=== PATIENT | female | born 1945 | race Hispanic/Latino ===

== ENCOUNTER 2016-09-12 11:35 | Outpatient (CLI) | payer MEDICARE ==
--- NOTE | 2016-09-12 15:13 | Fluoroscopy Report ---
FLUOROSCOPY BARIUM SWALLOW/ESOPHAGRAM INDICATION: Chest pain after EGD with dilatation. COMPARISON: None similar. FINDINGS: Limited barium swallow performed utilizing Gastrografin followed by thin barium. Normal swallowing. No aspiration. No evidence of leak. Normal esophageal course and caliber. No focal mucosal abnormality to the extent assessed. Few surgical clips along mid to distal esophagus noted. Possible cholecystectomy clips as also few surgical clips near the greater curvature superiorly in this patient with history of Hugo fundoplication. Gastric fundus and GE junction though appear positioned slightly high/herniated. No gastroesophageal reflux though demonstrated. CONCLUSION: No focal esophageal abnormality identified with postsurgical changes along its mid to distal portion as also in the included upper abdomen in this patient with history of prior fundoplication surgery, integrity of which may be correlated for clinically, as described above. Thank you for the opportunity to participate in this patient's care.
== END 2016-09-12 11:36 | disposition home or self-care (01) ==
LOC: FLUORO 11:35
PROVIDERS: ATTEND Internal Medicine Gastroenterology
DX: R07.9 Chest pain, unspecified (principal); Z90.49 Acquired absence of other specified parts of digestive tract
CPT/HCPCS: 74220; Q9963

== ENCOUNTER 2017-02-27 13:58 | Outpatient (CLI) | payer MEDICARE ==
[2017-02-27 14:21] LABS: Basophils % (Auto) 0.9 % (0.0-1.8); Eosinophils % (Auto) 5.5 % (0.0-4.3); Hemoglobin 11.2 gm/dl (10.1-14.3); Mean Corpuscular HGB Conc 33 % (30-34); Mean Corpuscular Hemoglobin 30 pg (28-32); Mean Corpuscular Volume 91 fl (79-97); Platelet Count 194 K/mm3 (140-440); Red Blood Count 3.76 M/mm3 (3.65-5.03); Red Cell Distribution Width 15.5 % (13.2-15.2); White Blood Count 5.9 K/mm3 (4.5-11.0)
[2017-02-27 14:38] LABS: Bacteria,Urine 1+ /HPF (Negative); Bilirubin,Urine NEG (Negative); Blood,Urine NEG (Negative); Ketones,Urine NEG (Negative); Leukocyte Esterase,Urine SM (Negative); Mucus,Urine FEW /HPF; Nitrite,Urine NEG (Negative); Protein,Urine <15 mg/dL mg/dL (Negative); Urobilinogen,Urine < 2.0 mg/dL (<2.0)
[2017-02-27 14:57] LABS: BUN/Creatinine Ratio 15.23; Calcium 9.4 mg/dL (8.4-10.2); Chloride 94.6 mmol/L (98-107); Potassium 5.7 mmol/L (3.6-5.0); Uric Acid 5.4 mg/dL (3.5-7.6)
[2017-03-01 16:24] LABS: Vitamin D, 25-OH, Total 28 ng/mL (30-100)
== END 2017-02-27 13:59 | disposition home or self-care (01) ==
LOC: LAB 13:58
PROVIDERS: ATTEND Internal Medicine Nephrology
DX: I12.9 Hypertensive chronic kidney disease with stage 1 through stage 4 chronic kidney disease, or unspecified chronic kidney disease (principal); N18.4 Chronic kidney disease, stage 4 (severe); D63.1 Anemia in chronic kidney disease; E79.0 Hyperuricemia without signs of inflammatory arthritis and tophaceous disease; K21.9 Gastro-esophageal reflux disease without esophagitis; E78.00 Pure hypercholesterolemia, unspecified; F32.9 Major depressive disorder, single episode, unspecified; Z79.899 Other long term (current) drug therapy
CPT/HCPCS: 36415; 80048; 81001; 82306; 82570; 83970; 84105; 84156; 84550; 85025

== ENCOUNTER 2017-08-08 13:29 | Outpatient (CLI) | payer MEDICARE ==
[2017-08-08 14:39] LABS: Bacteria,Urine 4+ /HPF (Negative); Bilirubin,Urine NEG (Negative); Blood,Urine SM (Negative); Ketones,Urine NEG (Negative); Leukocyte Esterase,Urine LG (Negative); Nitrite,Urine NEG (Negative); Protein,Urine <15 mg/dL mg/dL (Negative); Urobilinogen,Urine < 2.0 mg/dL (<2.0)
--- NOTE | 2017-08-08 14:45 | XRay Report ---
CHEST 2 VIEWS INDICATION: Chronic kidney disease, stage IV. COMPARISON: 07/08/2017 FINDINGS: PA and lateral chest radiographs again demonstrate normal cardiomediastinal silhouette, biapical scarring/pleural thickening as also left hilar and right and left upper quadrant surgical clips. Clear remainder lungs. Stable bones. CONCLUSION: No acute chest process, stable, as described. Thank you for the opportunity to participate in this patient's care.
[2017-08-08 14:49] LABS: Basophils % (Auto) 0.5 % (0.0-1.8); Eosinophils % (Auto) 2.1 % (0.0-4.3); Hematocrit 34.9 % (30.3-42.9); Hemoglobin 11.6 gm/dl (10.1-14.3); Mean Corpuscular HGB Conc 33 % (30-34); Mean Corpuscular Hemoglobin 29 pg (28-32); Mean Corpuscular Volume 87 fl (79-97); Platelet Count 208 K/mm3 (140-440); Red Blood Count 3.99 M/mm3 (3.65-5.03); Red Cell Distribution Width 14.8 % (13.2-15.2); White Blood Count 6.4 K/mm3 (4.5-11.0)
[2017-08-08 14:53] LABS: Albumin 4.2 g/dL (3.9-5); Albumin/Globulin Ratio 1.2 %; Bilirubin,Total 0.2 mg/dL (0.1-1.2); Calcium 9.7 mg/dL (8.4-10.2); Chloride 98.1 mmol/L (98-107); Magnesium 1.9 mg/dL (1.7-2.3); Phosphorous 3.7 mg/dL (2.5-4.5); Potassium 5.4 mmol/L (3.6-5.0); Total Protein 7.6 g/dL (6.3-8.2); Uric Acid 3.5 mg/dL (3.5-7.6)
[2017-08-08 14:55] LABS: WBC,Urine > 182.0 /HPF (0.0-6.0)
== END 2017-08-08 13:30 | disposition home or self-care (01) ==
LOC: XRAY 13:29
PROVIDERS: ATTEND Internal Medicine Nephrology
DX: I12.9 Hypertensive chronic kidney disease with stage 1 through stage 4 chronic kidney disease, or unspecified chronic kidney disease (principal); N18.4 Chronic kidney disease, stage 4 (severe); D63.1 Anemia in chronic kidney disease; N25.81 Secondary hyperparathyroidism of renal origin; E79.0 Hyperuricemia without signs of inflammatory arthritis and tophaceous disease; K21.9 Gastro-esophageal reflux disease without esophagitis
CPT/HCPCS: 36415; 71020; 80053; 81001; 82570; 83735; 83970; 84100; 84156; 84550; 85025

== ENCOUNTER 2021-07-12 09:46 | Inpatient (IN) | payer MEDICARE ==
[2021-07-12 10:55] LABS: Basophils % (Auto) 0.2 % (0.0-1.8); Eosinophils # (Auto) 0.1 K/mm3 (0.0-0.4); Eosinophils % (Auto) 0.9 % (0.0-4.3); Hematocrit 34.4 % (30.3-42.9); Hemoglobin 11.1 gm/dl (10.1-14.3); Lymphocytes # (Auto) 0.4 K/mm3 (1.2-5.4); Mean Corpuscular HGB Conc 32 % (30-34); Mean Corpuscular Volume 84 fl (79-97); Monocytes # (Auto) 0.2 K/mm3 (0.0-0.8); Monocytes % (Auto) 3.9 % (0.0-7.3); Platelet Count 238 K/mm3 (140-440); Red Blood Count 4.11 M/mm3 (3.65-5.03); Red Cell Distribution Width 15.4 % (13.2-15.2)
--- NOTE | 2021-07-12 11:03 | Emergency Department Report ---
HPI - General Chief Complaint: Hypoglycemia Time Seen by Provider: 07/12/21 10:04 - HPI HPI: Roblero 7 The patient is a 75-year-old female present with a chief complaint of altered mental status/hypoglycemia. The patient remembers her trying to wake her up and her sitting on the side of the bed being unable to talk. The patient states she was speaking as if she was drowsy or as if her tongue was "falling down the back of [her] throat." EMS was called and the patient was found to be hypoglycemic with a D stick of 46. Patient was given 1 amp of D50 and her blood sugar increased to 179. In the ED the patient had a glucose of 81. The carolyn ent was admitted to this hospital in May with similar episodes of hypoglycemia with a working diagnosis of adrenal insufficiency. Patient was discharged with a prescription for hydrocortisone twice daily but the patient states she ran out of this medication approximately 2 to 3 weeks ago. 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 Patient currently denies complaints ED Past Medical Hx - Past Medical History Previous Medical History?: Yes Hx Hypertension: Yes (FOR 3 YRS, DR. HOPPER- PCP) Hx GERD: Yes Hx Arthritis: Yes (IN THUMBS) - Surgical History Past Surgical History?: Yes Hx Cholecystectomy: Yes - Family History Family history: no significant - Social History Smoking Status: Never Smoker Substance Use Type: None - Medications Home Medications: Home Medications Medication Instructions Recorded Confirmed Last Taken Type Dicyclomine [Bentyl] 10 mg PO TID PRN 09/07/13 07/13/21 09/10/13 21:00 History Potassium Chloride [Klor-Con 10] 10 meq PO QDAY 09/07/13 07/13/21 07/11/21 09:00 History Promethazine [Phenergan] 25 mg PO Q6H PRN 09/07/13 07/13/21 09/09/13 History Ropinirole HCl 1 mg PO QHS PRN 09/07/13 07/13/21 09/10/13 21:00 History diazePAM TAB [Valium] 5 mg PO TID PRN 09/07/13 07/13/21 09/04/13 History estradioL [Estrace] 1 mg PO QDAY 09/07/13 07/13/21 07/11/21 09:00 History traMADoL [Ultram 50 MG tab] 50 mg PO Q6HR PRN 09/07/13 07/13/21 09/10/13 22:00 History Amlodipine Besylate [Norvasc] 5 mg PO QDAY 05/12/21 07/13/21 07/11/21 09:00 History Fenofibrate 160 mg PO QDAY 05/12/21 07/13/21 07/11/21 09:00 History LORazepam [Ativan] 1 mg PO TID PRN 05/12/21 07/13/21 Unknown History Montelukast [Singulair] 10 mg PO QPM 05/12/21 07/13/21 07/11/21 22:00 History QUEtiapine [SEROquel] 300 mg PO QHS PRN 05/12/21 07/13/21 Unknown History Sertraline [Zoloft] 100 mg PO QDAY 05/12/21 07/13/21 07/11/21 09:00 History clonazePAM [KlonoPIN] 0.5 mg PO BID PRN 05/12/21 07/13/21 Unknown History Hydrocortisone [Cortef TAB] 20 mg PO Q12HR 30 Days #60 tablet 05/15/21 07/13/21 07/11/21 21:00 Rx Pantoprazole [Protonix TAB] 40 mg PO BIDAC 30 Days #60 tablet 05/15/21 07/13/21 07/11/21 22:00 Rx QUEtiapine [SEROquel] 100 mg PO QHS tablet 05/15/21 07/13/21 07/11/21 22:00 Rx Sucralfate [Carafate] 1 gm PO ACHS 30 Days #1 bottle 05/15/21 07/13/21 07/11/21 23:00 Rx ED Review of Systems ROS: Stated complaint: LOW BLOOD SUGAR Other details as noted in HPI Constitutional: no symptoms reported Eyes: denies: eye pain ENT: denies: throat pain Respiratory: no symptoms reported Cardiovascular: denies: chest pain Endocrine: see HPI Gastrointestinal: denies: abdominal pain Genitourinary: denies: dysuria Musculoskeletal: denies: back pain Neurological: other (Difficulty speaking) Physical Exam - Physical Exam Vital Signs: Vital Signs 07/12/21 09:49 Temperature 97.9 F Pulse Rate 97 H Respiratory 16 Rate Blood Pressure 153/79 [Left] O2 Sat by Pulse 96 Oximetry Physical Exam: GENERAL: The patient is well-developed well-nourished female lying on stretcher not appearing to be in acute distress. [] HEENT: Normocephalic. Atraumatic. Extraocular motions are intact. Patient has moist mucous membranes. NECK: Supple. Trachea midline CHEST/LUNGS: Clear to auscultation. There is no respiratory distress noted. HEART/CARDIOVASCULAR: Irregularly irregular. There is no tachycardia. There is no gallop rub or murmur. ABDOMEN: Abdomen is soft, nontender. Patient has normal bowel sounds. There is no abdominal distention. SKIN: There is no rash. There is no edema. There is no diaphoresis. NEURO: The patient is awake, alert, and oriented. The patient is cooperative. The patient has no focal neurologic deficits. The patient has normal speech. Cranial nerves II through XII grossly intact MUSCULOSKELETAL: There is no evidence of acute injury. ED Course Vital Signs 07/12/21 09:49 Temperature 97.9 F Pulse Rate 97 H Respiratory 16 Rate Blood Pressure 153/79 [Left] O2 Sat by Pulse 96 Oximetry ED Medical Decision Making - Lab Data Result diagrams: 07/13/21 03:55 07/13/21 03:55 Laboratory Tests 07/12/21 07/12/21 07/12/21 10:00 10:42 10:42 WBC 5.9 RBC 4.11 Hgb 11.1 Hct 34.4 MCV 84 MCH 27 L MCHC 32 RDW 15.4 H Plt Count 238 Lymph % (Auto) 6.0 L [place] % (Auto) 3.9 Eos % (Auto) 0.9 Baso % (Auto) 0.2 Lymph # (Auto) 0.4 L [place] # (Auto) 0.2 Eos # (Auto) 0.1 Baso # (Auto) 0.0 Seg Neutrophils % 89.0 H Seg Neutrophils # 5.3 Sodium 141 Potassium 3.9 Chloride 102.0 Carbon Dioxide 23 Anion Gap 20 BUN 33 H Creatinine 1.5 H Estimated GFR 34 BUN/Creatinine Ratio 22 Glucose 86 POC Glucose 81 Calcium 8.9 Total Bilirubin 0.30 AST 28 ALT 11 Alkaline Phosphatase 79 Total Protein 7.6 Albumin 4.4 Albumin/Globulin Ratio 1.4 TSH Free T4 07/12/21 07/12/21 10:42 12:36 WBC RBC Hgb Hct MCV MCH MCHC RDW Plt Count Lymph % (Auto) [place] % (Auto) Eos % (Auto) Baso % (Auto) Lymph # (Auto) [place] # (Auto) Eos # (Auto) Baso # (Auto) Seg Neutrophils % Seg Neutrophils # Sodium Potassium Chloride Carbon Dioxide Anion Gap BUN Creatinine Estimated GFR BUN/Creatinine Ratio Glucose POC Glucose 58 L Calcium Total Bilirubin AST ALT Alkaline Phosphatase Total Protein Albumin Albumin/Globulin Ratio TSH 3.160 Free T4 0.59 L - Differential Diagnosis Hypoglycemia, adrenal insufficiency Critical care attestation.: If time is entered above; I have spent that time in minutes in the direct care of this critically ill patient, excluding procedure time. ED Disposition Clinical Impression: Hypoglycemia Disposition: ADMITTED INPATIENT Is pt being admited?: Yes Does the pt Need Aspirin: No Condition: Stable Time of Disposition: 12:46 (Hospitalist called (Dr. Carlton))
[2021-07-12 11:16] LABS: Albumin 4.4 g/dL (3.9-5); Calcium 8.9 mg/dL (8.4-10.2)
[2021-07-12 11:27] LABS: Free T4 (Free Thyroxine) 0.59 ng/dL (0.76-1.46)
[2021-07-12] MEDS ORDERED: DEXTROSE 10% IN WATER 1,000 ML IV SCH (14:00)
[2021-07-12] MEDS ORDERED: HYDROCORTISONE 10 MG TAB PO ONE (14:00)
--- NOTE | 2021-07-12 14:08 | History and Physical Report ---
History of Present Illness Chief complaint: confused History of present illness: 75 YO Female with HTN, GERD, Adrenal Insufficiency, DM presents to ED for evaluation. 75 yo female with pmhx of HTN, GERD, prior cholecystectomy presenting with complaint of weakness and fatigue. History obtained from both patient and . Onset was Saturday, patient began feeling tired and was noted to be hypotensive by . Patient states that she also had intermittent spells of dizziness and nausea which states is occasionally relieved by meals. She also has associated abd pain. She is not a diabetic and denies being on any antihyperglyemics. Prior to admission, patient became encephalopathic per . Patient has no recollection of event. Was foudn to be hypoglycemic in 20's by EMS, given D50 amp. In ED, patient was started on D5 drip and was being given D50 pushes intermittently for recurrent hypoglycemia. Temperature was unable to be obtained but subsequent rectal temp taken and was 94.4 F. On my encounter, patient was resting comfortably. Her only complaint was feeling weak and cold. She denied any nicholson, chest pain, n/v/c, peripheral nerve pain. She states that she does have diarrhea but this is chronic. She denied any recent changes to her medications, recent illnesses, or recent steroid usage. PMhx: HTN, GERD PSHx: cholecystectomy FH: Reviewed non contributory SH: smoking: Denies ETOH: denies rec drugs; denies Chief Complaint: Hypoglycemia Time Seen by Provider: 07/12/21 10:04 - HPI HPI: Roblero 7 The patient is a 75-year-old female present with a chief complaint of altered mental status/hypoglycemia. The patient remembers her trying to wake her up and her sitting on the side of the bed being unable to talk. The patient states she was speaking as if she was drowsy or as if her tongue was "falling down the back of [her] throat." EMS was called and the patient was found to be hypoglycemic with a D stick of 46. Patient was given 1 amp of D50 and her blood sugar increased to 179. In the ED the patient had a glucose of 81. The patient was admitted to this hospital in May with similar episodes of hypoglycemia with a working diagnosis of adrenal insufficiency. Patient was discharged with a prescription for hydrocortisone twice daily but the patient states she ran out of this medication approximately 2 to 3 weeks ago. 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 Patient currently denies complaints ED Past Medical Hx - Past Medical History Previous Medical History?: Yes Hx Hypertension: Yes (FOR [address] YRS, DR. HOPPER- PCP) Hx GERD: Yes Hx Arthritis: Yes (IN THUMBS) - Surgical History Past Surgical History?: Yes Hx Cholecystectomy: Yes - Family History Family history: no significant - Social History Smoking Status: Never Smoker Substance Use Type: None Past History Past Medical History: diabetes, hypertension Past Surgical History: Other (hysterectomy, hernia repair, Other (Gallbladder, Sacral nerve stimulation and Sphinter repair), Fistulectomy) Social history: no significant social history Family history: no significant family history Medications and Allergies Medications and Allergies Allergies Allergy/AdvReac Type Severity Reaction Status Date / Time codeine AdvReac VOMITING,IT Verified 05/09/21 05:47 ALDO erythromycin base AdvReac VOMITING,IT Verified 05/09/21 05:47 [Erythromycin Base] ALDO metoclopramide HCl AdvReac VOMITING,IT Verified 05/09/21 05:47 [From Reglan] ALDO pentazocine lactate AdvReac VOMITING,IT Verified 05/09/21 05:47 [From Talwin] ALDO propoxyphene HCl AdvReac VOMITING,IT Verified 05/09/21 05:47 [From Darvon] ALDO Sulfa (Sulfonamide AdvReac VOMITING,IT Verified 05/09/21 05:47 Antibiotics) ALDO paper tape AdvReac Rash Uncoded 09/07/13 10:03 Home Medications Medication Instructions Recorded Confirmed Last Taken Type Dicyclomine [Bentyl] 10 mg PO TID PRN 09/07/13 05/12/21 09/10/13 21:00 History Potassium Chloride [Klor-Con 10] 10 meq PO QDAY 09/07/13 05/12/21 09/10/13 12:00 History Promethazine [Phenergan] 25 mg PO Q6H PRN 09/07/13 05/12/21 09/09/13 History Ropinirole HCl 1 mg PO QHS PRN 09/07/13 05/12/21 09/10/13 21:00 History diazePAM TAB [Valium] 5 mg PO TID PRN 09/07/13 05/12/21 09/04/13 History estradioL [Estrace] 1 mg PO QDAY 09/07/13 05/12/21 09/10/13 21:00 History traMADoL [Ultram 50 MG tab] 50 mg PO Q6HR PRN 09/07/13 05/12/21 09/10/13 22:00 History Amlodipine Besylate [Norvasc] 5 mg PO QDAY 05/12/21 05/12/21 Unknown History Fenofibrate 160 mg PO QDAY 05/12/21 05/12/21 Unknown History LORazepam [Ativan] 1 mg PO TID PRN 05/12/21 05/12/21 Unknown History Montelukast [Singulair] 10 mg PO QPM 05/12/21 05/12/21 Unknown History QUEtiapine [SEROquel] 300 mg PO QHS PRN 05/12/21 05/12/21 Unknown History Sertraline [Zoloft] 100 mg PO QDAY 05/12/21 05/12/21 Unknown History clonazePAM [KlonoPIN] 0.5 mg PO BID PRN 05/12/21 05/12/21 Unknown History Hydrocortisone [Cortef TAB] 20 mg PO Q12HR 30 Days #60 tablet 05/15/21 Unknown Rx Pantoprazole [Protonix TAB] 40 mg PO BIDAC 30 Days #60 tablet 05/15/21 Unknown Rx QUEtiapine [SEROquel] 100 mg PO QHS tablet 05/15/21 Unknown Rx Sucralfate [Carafate] 1 gm PO ACHS 30 Days #1 bottle 05/15/21 Unknown Rx Active Meds: Active Medications Dextrose (D10w) 1,000 mls @ 150 mls/hr IV DIRECT JOCELYNE Exam - Constitutional Vitals: Temp Pulse Resp BP Pulse Ox 97.9 F 97 H 16 153/79 96 07/12/21 09:49 07/12/21 09:49 07/12/21 09:49 07/12/21 09:49 07/12/21 09:49 Results - Labs CBC & Chem 7: 07/12/21 10:42 07/12/21 10:42 Labs: Abnormal lab results 07/12/21 07/12/21 07/12/21 Range/Units 10:42 10:42 10:42 MCH 27 L (28-32) pg RDW 15.4 H (13.2-15.2) % Lymph % (Auto) 6.0 L (13.4-35.0) % Lymph # (Auto) 0.4 L (1.2-5.4) K/mm3 Seg Neutrophils % 89.0 H (40.0-70.0) % BUN 33 H (7-17) mg/dL Creatinine 1.5 H (0.6-1.2) mg/dL POC Glucose (70-105) mg/dL Free T4 0.59 L (0.76-1.46) ng/dL 07/12/21 Range/Units 12:36 MCH (28-32) pg RDW (13.2-15.2) % Lymph % (Auto) (13.4-35.0) % Lymph # (Auto) (1.2-5.4) K/mm3 Seg Neutrophils % (40.0-70.0) % BUN (7-17) mg/dL Creatinine (0.6-1.2) mg/dL POC Glucose 58 L (70-105) mg/dL Free T4 (0.76-1.46) ng/dL
[2021-07-12] MEDS ORDERED: ALBUTEROL 2.5 MG/3 ML NEBU IH PRN (14:14)
[2021-07-12] MEDS ORDERED: oxyCODONE /ACETAMINOPHEN 5-325MG TAB PO PRN (14:14)
[2021-07-12] MEDS ORDERED: ACETAMINOPHEN 325 MG TAB PO PRN (14:14)
[2021-07-12] MEDS ORDERED: HYDROmorphone 1 MG/1 ML INJ IV PRN (14:14)
[2021-07-12] MEDS ORDERED: DICYCLOMINE 10 MG CAP PO PRN (14:17)
[2021-07-12] MEDS ORDERED: PROMETHAZINE 25 MG TAB PO PRN (14:17)
[2021-07-12] MEDS ORDERED: rOPINIRole 1 MG TAB PO PRN (14:17)
--- NOTE | 2021-07-12 14:21 | History and Physical Report ---
History of Present Illness Chief complaint: confused History of present illness: 75 YO Female with HTN, GERD, OA, Adrenal Insufficiency, DM presents to ED for evaluation. Patient is confused and lethargic the time my evaluation unable to provide detailed history. Patient provides only minimal history. Additional h istory brought by EMS staff, ED staff, as well as patient who was made available by telephone for interview. As per this patient had experienced increased fatigue, confusion, episodes of agitation over the past 3 days with persistent and worsening symptoms over the same timeframe. Patient was found to be more confused today. The patient ran out of hydrocortisone 2 weeks ago and has been noncompliant with medication since that time. EMS was notified and upon arrival the patient was found to be in distress and found to have a serum glucose of 20. Patient given an ampule of D50 and subsequent transported to [facility] for further care and evaluation of the aforementioned symptoms. The patient was seen and evaluated in the emergency department. All lab and imaging studies reviewed. The patient was found to have adrenal insufficiency crisis complicated by hypoglycemia, as well as metabolic encephalopathy, and acute kidney injury. Patient admitted to [facility] and initiated on IV hydrocortisone replacement therapy, D5 drip, with concomitant IV fluid resuscitation therapy. No reports of fever, chills, chest pain, palpitation or productive cough, skin rash, recent contact, or known exposure to COVID-19. Prior admission on 05/09/2021 reviewed. All medication listed at time of admission has been reconciled. Patient has diminished cognition at time of evaluation but has a positive gag reflex and is able to protect her airway without difficulty. Past History Past Medical History: arthritis, diabetes, GERD, hypertension, other (See HPI) Past Surgical History: cholecystectomy Social history: , lives with family. denies: smoking, alcohol abuse, prescription drug abuse Family history: diabetes, hypertension Medications and Allergies Allergies Allergy/AdvReac Type Severity Reaction Status Date / Time codeine AdvReac VOMITING,IT Verified 05/09/21 05:47 ALDO erythromycin base AdvReac VOMITING,IT Verified 05/09/21 05:47 [Erythromycin Base] ALDO metoclopramide HCl AdvReac VOMITING,IT Verified 05/09/21 05:47 [From Reglan] ALDO pentazocine lactate AdvReac VOMITING,IT Verified 05/09/21 05:47 [From Talwin] ALDO propoxyphene HCl AdvReac VOMITING,IT Verified 05/09/21 05:47 [From Darvon] ALDO Sulfa (Sulfonamide AdvReac VOMITING,IT Verified 05/09/21 05:47 Antibiotics) ALDO paper tape AdvReac Rash Uncoded 09/07/13 10:03 Home Medications Medication Instructions Recorded Confirmed Last Taken Type Dicyclomine [Bentyl] 10 mg PO TID PRN 09/07/13 05/12/21 09/10/13 21:00 History Potassium Chloride [Klor-Con 10] 10 meq PO QDAY 09/07/13 05/12/21 09/10/13 12:00 History Promethazine [Phenergan] 25 mg PO Q6H PRN 09/07/13 05/12/21 09/09/13 History Ropinirole HCl 1 mg PO QHS PRN 09/07/13 05/12/21 09/10/13 21:00 History diazePAM TAB [Valium] 5 mg PO TID PRN 09/07/13 05/12/21 09/04/13 History estradioL [Estrace] 1 mg PO QDAY 09/07/13 05/12/21 09/10/13 21:00 History traMADoL [Ultram 50 MG tab] 50 mg PO Q6HR PRN 09/07/13 05/12/21 09/10/13 22:00 History Amlodipine Besylate [Norvasc] 5 mg PO QDAY 05/12/21 05/12/21 Unknown History Fenofibrate 160 mg PO QDAY 05/12/21 05/12/21 Unknown History LORazepam [Ativan] 1 mg PO TID PRN 05/12/21 05/12/21 Unknown History Montelukast [Singulair] 10 mg PO QPM 05/12/21 05/12/21 Unknown History QUEtiapine [SEROquel] 300 mg PO QHS PRN 05/12/21 05/12/21 Unknown History Sertraline [Zoloft] 100 mg PO QDAY 05/12/21 05/12/21 Unknown History clonazePAM [KlonoPIN] 0.5 mg PO BID PRN 05/12/21 05/12/21 Unknown History Hydrocortisone [Cortef TAB] 20 mg PO Q12HR 30 Days #60 tablet 05/15/21 Unknown Rx Pantoprazole [Protonix TAB] 40 mg PO BIDAC 30 Days #60 tablet 05/15/21 Unknown Rx QUEtiapine [SEROquel] 100 mg PO QHS tablet 05/15/21 Unknown Rx Sucralfate [Carafate] 1 gm PO ACHS 30 Days #1 bottle 05/15/21 Unknown Rx Active Meds: Active Medications Acetaminophen (Acetaminophen 325 Mg Tab) 650 mg PO Q6H PRN PRN Reason: Pain MILD(1-3)/Fever >100.5/SOUZA Albuterol (Albuterol 2.5 Mg/3 Ml Nebu) 2.5 mg IH Q3HRT PRN PRN Reason: Shortness Of Breath Dicyclomine HCl (Dicyclomine 10 Mg Cap) 10 mg PO TID PRN PRN Reason: acid reflux Estradiol (Estradiol 1 Mg Tab) 1 mg PO QDAY [facility] Hydrocortisone Sodium Succinate (Hydrocortisone Sod Succ 100 Mg/2 Ml Vial) 100 mg IV TID [facility] Stop: 07/13/21 08:01 Hydromorphone HCl (Hydromorphone 1 Mg/1 Ml Inj) 0.5 mg IV Q23H PRN PRN Reason: Pain , Severe (7-10) Dextrose (D10w) 1,000 mls @ 150 mls/hr IV DIRECT JOCELYNE Sodium Chloride (Nacl 0.9% 1000 Ml) 1,000 mls @ 100 mls/hr IV DIRECT [facility] Miscellaneous Medication (Fenofibrate [Fenofibrate]) 160 mg PO QDAY [facility] Miscellaneous Medication (Potassium Chloride [Klor-Con 10]) 10 meq PO QDAY [facility] Montelukast Sodium (Montelukast 10 Mg Tab) 10 mg PO QPM [facility] Oxycodone/Acetaminophen (Oxycodone /Acetaminophen 5-325mg Tab) 1 tab PO Q16H PRN PRN Reason: Pain, Moderate (4-6) Pantoprazole Sodium (Pantoprazole 40 Mg Tab) 40 mg PO BIDAC [facility] Promethazine HCl (Promethazine 25 Mg Tab) 25 mg PO Q6H PRN PRN Reason: Nausea Quetiapine Fumarate (Quetiapine 100 Mg Tab) 100 mg PO QHS [facility] Ropinirole HCl (Ropinirole 1 Mg Tab) 1 mg PO QHS PRN PRN Reason: restless legs Sertraline HCl (Sertraline 100 Mg Tab) 100 mg PO QDAY JOCELYNE Sodium Chloride (Sodium Chloride 0.9% 10 Ml Flush Syringe) 10 ml IV BID JOCELYNE Sodium Chloride (Sodium Chloride 0.9% 10 Ml Flush Syringe) 10 ml IV PRN PRN PRN Reason: LINE FLUSH Sucralfate (Sucralfate 1 Gm/10 Ml Oral Liqd) 1 gm PO ACHS JOCELYNE Tramadol HCl (Tramadol 50 Mg Tab) 50 mg PO Q6HR PRN PRN Reason: PAIN Review of Systems ROS unobtainable: due to mental status Exam - Constitutional Vitals: Temp Pulse Resp BP Pulse Ox 97.9 F 107 H 16 171/70 100 07/12/21 09:49 07/12/21 14:20 07/12/21 14:20 07/12/21 14:20 07/12/21 14:20 General appearance: Present: mild distress - EENT Eyes: Present: PERRL ENT: clear oral mucosa, hearing decreased - Neck Neck: Present: supple, normal ROM - Respiratory Respiratory effort: normal Respiratory: bilateral: CTA - Cardiovascular Heart Sounds: Present: S1 & S2. Absent: rub, click - Extremities Extremities: pulses symmetrical, No edema Peripheral Pulses: within normal limits - Abdominal General gastrointestinal: Present: soft, non-tender, non-distended, normal bowel sounds Female genitourinary: Present: normal - Integumentary Integumentary: Present: clear, dry, clammy, decreased turgor - Musculoskeletal Musculoskeletal: generalized weakness - Psychiatric Psychiatric: no appropriate mood/affect, no intact judgment & insight, no memory intact - Neurologic Neurologic: CNII-XII intact, no focal deficits, moves all extremities, no gait normal Results - Labs CBC & Chem 7: 07/12/21 10:42 07/12/21 10:42 Labs: Abnormal lab results 07/12/21 07/12/21 07/12/21 Range/Units 10:42 10:42 10:42 MCH 27 L (28-32) pg RDW 15.4 H (13.2-15.2) % Lymph % (Auto) 6.0 L (13.4-35.0) % Lymph # (Auto) 0.4 L (1.2-5.4) K/mm3 Seg Neutrophils % 89.0 H (40.0-70.0) % BUN 33 H (7-17) mg/dL Creatinine 1.5 H (0.6-1.2) mg/dL POC Glucose (70-105) mg/dL Free T4 0.59 L (0.76-1.46) ng/dL 07/12/21 Range/Units 12:36 MCH (28-32) pg RDW (13.2-15.2) % Lymph % (Auto) (13.4-35.0) % Lymph # (Auto) (1.2-5.4) K/mm3 Seg Neutrophils % (40.0-70.0) % BUN (7-17) mg/dL Creatinine (0.6-1.2) mg/dL POC Glucose 58 L (70-105) mg/dL Free T4 (0.76-1.46) ng/dL Assessment and Plan - Patient Problems (1) Adrenal crisis syndrome Current Visit: Yes Status: Acute Plan to address problem: IV hydrocortisone bolus, IV hydrocortisone therapy, IV fluid resuscitation therapy, neuro check, supportive care, blood pressure monitoring. (2) Acute kidney injury (ELISA) with acute tubular necrosis (ATN) Current Visit: Yes Status: Acute Plan to address problem: IV fluid resuscitation therapy, BMP, repeat BMP in a.m. (3) Metabolic encephalopathy Current Visit: Yes Status: Acute Plan to address problem: Neuro check, CT scan head from prior admission reviewed, seizure precautions, treat adrenal insufficiency (4) Hypoglycemia Current Visit: Yes Status: Acute Plan to address problem: Dextrose drip, Accu-Chek every 6 hours, continue hypoglycemia protocol (5) DVT prophylaxis Current Visit: Yes Status: Acute Plan to address problem: SCD to bilateral lower extremities while in bed (6) Advance care planning Current Visit: Yes Status: Acute Plan to address problem: Disease education conducted, care plan discussed, diagnoses discussed, prognosis discussed, patient is full code, patient family acknowledges understanding agree with care plan. Patient family counseled outpatient medication compliance. +30 minutes.
[2021-07-12] MEDS: HYDROCORTISONE SOD SUCC 100 MG/2 ML VIAL IV SCH (14:34)
[2021-07-12] MEDS ORDERED: traMADol 50 MG TAB PO PRN (16:24)
[2021-07-12] MEDS ORDERED: SODIUM CHLORIDE 0.9% 1000 ML 1,000 ML IV SCH (16:30)
[2021-07-12] MEDS: PANTOPRAZOLE 40 MG TAB PO SCH (16:31)
[2021-07-12] MEDS: SUCRALFATE 1 GM/10 ML ORAL LIQD PO SCH (18:19)
[2021-07-13] MEDS: HYDROCORTISONE SOD SUCC 100 MG/2 ML VIAL IV SCH ×2 (01:17→10:00)
[2021-07-13] MEDS: QUEtiapine 100 MG TAB PO SCH ×2 (01:17→21:23)
[2021-07-13] MEDS: SUCRALFATE 1 GM/10 ML ORAL LIQD PO SCH ×5 (01:17→21:22)
[2021-07-13 04:27] LABS: Basophils % (Auto) 0.4 % (0.0-1.8); Eosinophils # (Auto) 0.1 K/mm3 (0.0-0.4); Eosinophils % (Auto) 1.3 % (0.0-4.3); Hemoglobin 10.2 gm/dl (10.1-14.3); Lymphocytes # (Auto) 0.5 K/mm3 (1.2-5.4); Lymphocytes % (Auto) 10.9 % (13.4-35.0); Mean Corpuscular HGB Conc 32 % (30-34); Mean Corpuscular Volume 83 fl (79-97); Monocytes # (Auto) 0.1 K/mm3 (0.0-0.8); Monocytes % (Auto) 3.4 % (0.0-7.3); Platelet Count 209 K/mm3 (140-440); Red Blood Count 3.89 M/mm3 (3.65-5.03); Red Cell Distribution Width 15.4 % (13.2-15.2)
[2021-07-13 04:50] LABS: Albumin 4.2 g/dL (3.9-5); Calcium 8.7 mg/dL (8.4-10.2)
[2021-07-13] MEDS: MONTELUKAST 10 MG TAB PO SCH ×2 (06:38→18:15)
[2021-07-13] MEDS: PANTOPRAZOLE 40 MG TAB PO SCH ×2 (06:51→16:26)
[2021-07-13] MEDS: SERTRALINE 100 MG TAB PO SCH (10:00)
[2021-07-13] MEDS: POTASSIUM CHLORIDE ER 10 MEQ TAB PO SCH (10:00)
[2021-07-13] MEDS ORDERED: NON-FORMULARY EACH (Fenofibrate [Fenofibrate] 160 MG Tablet) PO SCH (10:00)
[2021-07-13] MEDS ORDERED: NON-FORMULARY EACH (Potassium Chloride [Klor-Con 10] 10 MEQ Tablet.Er) PO SCH (10:00)
[2021-07-13] MEDS: FENOFIBRATE 145 MG TAB PO SCH (10:00)
[2021-07-13] MEDS: ESTRADIOL 1 MG TAB PO SCH (11:56)
--- NOTE | 2021-07-13 11:56 | Electrocardiograph Report ---
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
--- NOTE | 2021-07-13 15:03 | Progress Note ---
Assessment and Plan Assessment and plan: 75 YO Female with HTN, GERD, OA, Adrenal Insufficiency, DM presents to ED for evaluation. Patient is confused and lethargic the time my evaluation unable to provide detailed history. Patient provides only minimal history. Additional history brought by EMS staff, ED staff, as well as patient who was made available by telephone for interview. As per this patient had experienced increased fatigue, confusion, episodes of agitation over the past 3 days with persistent and worsening symptoms over the same timeframe. Patient was found to be more confused today. The patient ran out of hydrocortisone 2 weeks ago and has been noncompliant with medication since that time. EMS was notified and upon arrival the patient was found to be in distress and found to have a serum glucose of 20. Patient given an ampule of D50 and subsequent transported to [facility] for further care and evaluation of the aforementioned symptoms. The patient was seen and evaluated in the emergency department. All lab and imaging studies reviewed. The patient was found to have adrenal insufficiency crisis complicated by hypoglycemia, as well as metabolic encephalopathy, and acute kidney injury. Patient admitted to [facility] and initiated on IV hydrocortisone replacement therapy, D5 drip, with concomitant IV fluid resuscitation therapy. No reports of fever, chills, chest pain, palpitation or productive cough, skin rash, recent contact, or known exposure to COVID-19. Prior admission on 05/09/2021 reviewed. All medication listed at time of admission has been reconciled. Patient has diminished cognition at time of evaluation but has a positive gag reflex and is able to protect her airway without difficulty. 07/13: Patient seen and examined, she is showing clinical improvement. Will discontinue D10 at this time, continue steroids. Start diet, anticipate discharge in am. (1) Adrenal crisis syndrome Current Visit: Yes Status: Acute Plan to address problem: IV hydrocortisone bolus, IV hydrocortisone therapy, IV fluid resuscitation therapy, neuro check, supportive care, blood pressure monitoring. (2) Acute kidney injury (ELISA) with acute tubular necrosis (ATN) Current Visit: Yes Status: Acute Plan to address problem: IV fluid resuscitation therapy, BMP, repeat BMP in a.m. (3) Metabolic encephalopathy Current Visit: Yes Status: Acute Plan to address problem: Neuro check, CT scan head from prior admission reviewed, seizure precautions, treat adrenal insufficiency (4) Hypoglycemia Current Visit: Yes Status: Acute Plan to address problem: Dextrose drip, Accu-Chek every 6 hours, continue hypoglycemia protocol (5) DVT prophylaxis Current Visit: Yes Status: Acute Plan to address problem: SCD to bilateral lower extremities while in bed (6) Advance care planning Current Visit: Yes Status: Acute Plan to address problem: Disease education conducted, care plan discussed, diagnoses discussed, prognosis discussed, patient is full code, patient family acknowledges understanding agree with care plan. Patient family counseled outpatient medication compliance. +30 minutes. History Interval history: Patient seen and examined, no new complaints. Hospitalist Physical - Physical exam Narrative exam: General appearance: Present: No distress - EENT Eyes: Present: PERRL ENT: clear oral mucosa, hearing decreased - Neck Neck: Present: supple, normal ROM - Respiratory Respiratory effort: normal Respiratory: bilateral: CTA - Cardiovascular Heart Sounds: Present: S1 & S2. Absent: rub, click - Extremities Extremities: pulses symmetrical, No edema Peripheral Pulses: within normal limits - Abdominal General gastrointestinal: Present: soft, non-tender, non-distended, normal bowel sounds Female genitourinary: Present: normal - Integumentary Integumentary: Present: clear, dry, clammy, decreased turgor - Musculoskeletal Musculoskeletal: generalized weakness - Psychiatric Psychiatric: no appropriate mood/affect, no intact judgment & insight, no memory intact - Neurologic Neurologic: CNII-XII intact, no focal deficits, moves all extremities, no gait normal - Constitutional Vitals: Temp Pulse Resp BP Pulse Ox 98.7 F 75 18 161/78 100 07/13/21 08:00 07/13/21 10:00 07/13/21 13:54 07/13/21 05:55 07/13/21 13:54 General appearance: Present: mild distress Results - Labs CBC & Chem 7: 07/13/21 03:55 07/13/21 03:55 Labs: Laboratory Last Values WBC 4.3 K/mm3 (4.5-11.0) L 07/13/21 03:55 RBC 3.89 M/mm3 (3.65-5.03) 07/13/21 03:55 Hgb 10.2 gm/dl (10.1-14.3) 07/13/21 03:55 Hct 32.0 % (30.3-42.9) 07/13/21 03:55 MCV 83 fl (79-97) 07/13/21 03:55 MCH 26 pg (28-32) L 07/13/21 03:55 MCHC 32 % (30-34) 07/13/21 03:55 RDW 15.4 % (13.2-15.2) H 07/13/21 03:55 Plt Count 209 K/mm3 (140-440) 07/13/21 03:55 Lymph % (Auto) 10.9 % (13.4-35.0) L 07/13/21 03:55 [place] % (Auto) 3.4 % (0.0-7.3) 07/13/21 03:55 Eos % (Auto) 1.3 % (0.0-4.3) 07/13/21 03:55 Baso % (Auto) 0.4 % (0.0-1.8) 07/13/21 03:55 Lymph # (Auto) 0.5 K/mm3 (1.2-5.4) L 07/13/21 03:55 [place] # (Auto) 0.1 K/mm3 (0.0-0.8) 07/13/21 03:55 Eos # (Auto) 0.1 K/mm3 (0.0-0.4) 07/13/21 03:55 Baso # (Auto) 0.0 K/mm3 (0.0-0.1) 07/13/21 03:55 Seg Neutrophils % 84.0 % (40.0-70.0) H 07/13/21 03:55 Seg Neutrophils # 3.6 K/mm3 (1.8-7.7) 07/13/21 03:55 Sodium 135 mmol/L (137-145) L 07/13/21 03:55 Potassium 4.2 mmol/L (3.6-5.0) 07/13/21 03:55 Chloride 97.2 mmol/L (98-107) L 07/13/21 03:55 Carbon Dioxide 22 mmol/L (22-30) 07/13/21 03:55 Anion Gap 20 mmol/L 07/13/21 03:55 BUN 27 mg/dL (7-17) H 07/13/21 03:55 Creatinine 1.5 mg/dL (0.6-1.2) H 07/13/21 03:55 Estimated GFR 34 ml/min 07/13/21 03:55 BUN/Creatinine Ratio 18 % 07/13/21 03:55 Glucose 281 mg/dL (65-100) H 07/13/21 03:55 POC Glucose 160 mg/dL (70-105) H 07/13/21 11:36 Calcium 8.7 mg/dL (8.4-10.2) 07/13/21 03:55 Total Bilirubin 0.30 mg/dL (0.1-1.2) 07/13/21 03:55 AST 24 units/L (5-40) 07/13/21 03:55 ALT 12 units/L (7-56) 07/13/21 03:55 Alkaline Phosphatase 76 units/L (35-129) 07/13/21 03:55 Total Protein 7.1 g/dL (6.3-8.2) 07/13/21 03:55 Albumin 4.2 g/dL (3.9-5) 07/13/21 03:55 Albumin/Globulin Ratio 1.4 % 07/13/21 03:55 TSH 3.160 mlU/mL (0.270-4.200) 07/12/21 10:42 Free T4 0.59 ng/dL (0.76-1.46) L 07/12/21 10:42 Coronavirus (PCR) Negative (Negative) 07/13/21 Unknown Active Medications - Current Medications Current Medications: Generic Name Dose Route Start Last Admin Trade Name Freq PRN Reason Stop Dose Admin Acetaminophen 650 mg 07/12/21 14:14 Acetaminophen 325 Mg Tab PO Q6H PRN Pain MILD(1-3)/Fever >100.5/SOUZA Albuterol 2.5 mg 07/12/21 14:14 Albuterol 2.5 Mg/3 Ml Nebu IH Q3HRT PRN Shortness Of Breath Dicyclomine HCl 10 mg 07/12/21 14:17 Dicyclomine 10 Mg Cap PO TID PRN acid reflux Estradiol 1 mg 07/13/21 10:00 07/13/21 11:56 Estradiol 1 Mg Tab PO 1 mg QDAY JOCELYNE Administration Fenofibrate 145 mg 07/13/21 10:00 07/13/21 10:00 Fenofibrate 145 Mg Tab PO 145 mg DAILY JOCELYNE Administration Hydromorphone HCl 0.5 mg 07/12/21 14:14 Hydromorphone 1 Mg/1 Ml Inj IV Q23H PRN Pain , Severe (7-10) Sodium Chloride 1,000 mls @ 100 mls/hr 07/12/21 16:30 07/13/21 06:52 Nacl 0.9% 1000 Ml IV 100 mls/hr DIRECT JOCELYNE Administration Montelukast Sodium 10 mg 07/12/21 18:00 07/13/21 06:38 Montelukast 10 Mg Tab PO Not Given QPM JOCELYNE Oxycodone/Acetaminophen 1 tab 07/12/21 14:14 07/13/21 03:19 Oxycodone /Acetaminophen 5-325mg Tab PO 1 tab Q16H PRN Administration Pain, Moderate (4-6) Pantoprazole Sodium 40 mg 07/12/21 16:30 07/13/21 06:51 Pantoprazole 40 Mg Tab PO 40 mg BIDAC JOCELYNE Administration Potassium Chloride 10 meq 07/13/21 10:00 07/13/21 10:00 Potassium Chloride Er 10 Meq Tab PO 10 meq QDAY JOCELYNE Administration Promethazine HCl 25 mg 07/12/21 14:17 Promethazine 25 Mg Tab PO Q6H PRN Nausea Quetiapine Fumarate 100 mg 07/12/21 22:00 07/13/21 01:17 Quetiapine 100 Mg Tab PO 100 mg QHS JOCELYNE Administration Ropinirole HCl 1 mg 07/12/21 14:17 Ropinirole 1 Mg Tab PO QHS PRN restless legs Sertraline HCl 100 mg 07/13/21 10:00 07/13/21 10:00 Sertraline 100 Mg Tab PO 100 mg QDAY JOCELYNE Administration Sodium Chloride 10 ml 07/12/21 17:00 07/13/21 10:01 Sodium Chloride 0.9% 10 Ml Flush Syringe IV 10 ml BID JOCELYNE Administration Sodium Chloride 10 ml 07/12/21 14:14 Sodium Chloride 0.9% 10 Ml Flush Syringe IV PRN PRN LINE FLUSH Sucralfate 1 gm 07/12/21 17:30 07/13/21 12:04 Sucralfate 1 Gm/10 Ml Oral Liqd PO 1 gm ACHS JOCELYNE Administration Tramadol HCl 50 mg 07/12/21 16:24 Tramadol 50 Mg Tab PO Q6H PRN Pain, Moderate (4-6)
[2021-07-14] MEDS ORDERED: DEXTROSE 50% IN WATER (25GM) 50 ML SYRINGE IV ONE (08:33)
[2021-07-14] MEDS: amLODIPine 5 MG TAB PO SCH (09:08)
[2021-07-14] MEDS: POTASSIUM CHLORIDE ER 10 MEQ TAB PO SCH (09:08)
[2021-07-14] MEDS: PANTOPRAZOLE 40 MG TAB PO SCH ×2 (09:08→18:08)
[2021-07-14] MEDS: SUCRALFATE 1 GM/10 ML ORAL LIQD PO SCH ×4 (09:08→21:13)
[2021-07-14] MEDS: SERTRALINE 100 MG TAB PO SCH (09:08)
[2021-07-14] MEDS: FENOFIBRATE 145 MG TAB PO SCH (09:08)
[2021-07-14] MEDS: ESTRADIOL 1 MG TAB PO SCH (09:16)
[2021-07-14] MEDS ORDERED: HYDROCORTISONE 10 MG TAB PO SCH (10:00)
[2021-07-14] MEDS: hydrALAZINE 20 MG/1 ML INJ IV PRN ×2 (11:18→21:15)
--- NOTE | 2021-07-14 12:59 | Progress Note ---
Assessment and Plan Assessment and plan: 75 YO Female with HTN, GERD, OA, Adrenal Insufficiency, DM presents to ED for evaluation. Patient is confused and lethargic the time my evaluation unable to provide detailed history. Patient provides only minimal history. Additional history brought by EMS staff, ED staff, as well as patient who was made available by telephone for interview. As per this patient had experienced increased fatigue, confusion, episodes of agitation over the past 3 days with persistent and worsening symptoms over the same timeframe. Patient was found to be more confused today. The patient ran out of hydrocortisone 2 weeks ago and has been noncompliant with medication since that time. EMS was notified and upon arrival the patient was found to be in distress and found to have a serum glucose of 20. Patient given an ampule of D50 and subsequent transported to [facility] for further care and evaluation of the aforementioned symptoms. The patient was seen and evaluated in the emergency department. All lab and imaging studies reviewed. The patient was found to have adrenal insufficiency crisis complicated by hypoglycemia, as well as metabolic encephalopathy, and acute kidney injury. Patient admitted to [facility] and initiated on IV hydrocortisone replacement therapy, D5 drip, with concomitant IV fluid resuscitation therapy. No reports of fever, chills, chest pain, palpitation or productive cough, skin rash, recent contact, or known exposure to COVID-19. Prior admission on 05/09/2021 reviewed. All medication listed at time of admission has been reconciled. Patient has diminished cognition at time of evaluation but has a positive gag reflex and is able to protect her airway without difficulty. 07/13: Patient seen and examined, she is showing clinical improvement. Will discontinue D10 at this time, continue steroids. Start diet, anticipate discharge in am. 11:Patient noted to have hypoglycemia mildly today not so sure how her diet was in the last 24 hours we will discussed with nursing staff to keep an accurate documentation of how much she is eating. She is on a regular meal at this time review of records from her adrenal work-up shows an elevated cortisol level. I think this patient will benefit from an order worker evaluation outpatient until at that time we will likely need to put her on some type of glucose supplementation until full work-up is completed outpatient. Hydrocortisone has been stopped will monitor to ensure no blood pressure complications. (1) Adrenal crisis syndrome Current Visit: Yes Status: Acute Plan to address problem: IV hydrocortisone bolus, IV hydrocortisone therapy, IV fluid resuscitation therapy, neuro check, supportive care, blood pressure monitoring. (2) Acute kidney injury (ELISA) with acute tubular necrosis (ATN) Current Visit: Yes Status: Acute Plan to address problem: IV fluid resuscitation therapy, BMP, repeat BMP in a.m. (3) Metabolic encephalopathy Current Visit: Yes Status: Acute Plan to address problem: Neuro check, CT scan head from prior admission reviewed, seizure precautions, treat adrenal insufficiency (4) Hypoglycemia Current Visit: Yes Status: Acute Plan to address problem: Dextrose drip, Accu-Chek every 6 hours, continue hypoglycemia protocol (5) DVT prophylaxis Current Visit: Yes Status: Acute Plan to address problem: SCD to bilateral lower extremities while in bed (6) Advance care planning Current Visit: Yes Status: Acute Plan to address problem: Disease education conducted, care plan discussed, diagnoses discussed, prognosis discussed, patient is full code, patient family acknowledges understanding agree with care plan. Patient family counseled outpatient medication compliance. +30 minutes. History Interval history: Patient seen and examined, no new complaints. Hospitalist Physical - Physical exam Narrative exam: General appearance: Present: No distress - EENT Eyes: Present: PERRL ENT: clear oral mucosa, hearing decreased - Neck Neck: Present: supple, normal ROM - Respiratory Respiratory effort: normal Respiratory: bilateral: CTA - Cardiovascular Heart Sounds: Present: S1 & S2. Absent: rub, click - Extremities Extremities: pulses symmetrical, No edema Peripheral Pulses: within normal limits - Abdominal General gastrointestinal: Present: soft, non-tender, non-distended, normal bowel sounds Female genitourinary: Present: normal - Integumentary Integumentary: Present: clear, dry, clammy, decreased turgor - Musculoskeletal Musculoskeletal: generalized weakness - Psychiatric Psychiatric: no appropriate mood/affect, no intact judgment & insight, no memory intact - Neurologic Neurologic: CNII-XII intact, no focal deficits, moves all extremities, no gait normal - Constitutional Vitals: Temp Pulse Resp BP Pulse Ox 97.3 F L 106 H 16 175/79 98 07/14/21 12:16 07/14/21 12:16 07/14/21 12:16 07/14/21 12:16 07/14/21 12:16 General appearance: Present: mild distress Results - Labs CBC & Chem 7: 07/13/21 03:55 07/13/21 03:55 Labs: Laboratory Last Values WBC 4.3 K/mm3 (4.5-11.0) L 07/13/21 03:55 RBC 3.89 M/mm3 (3.65-5.03) 07/13/21 03:55 Hgb 10.2 gm/dl (10.1-14.3) 07/13/21 03:55 Hct 32.0 % (30.3-42.9) 07/13/21 03:55 MCV 83 fl (79-97) 07/13/21 03:55 MCH 26 pg (28-32) L 07/13/21 03:55 MCHC 32 % (30-34) 07/13/21 03:55 RDW 15.4 % (13.2-15.2) H 07/13/21 03:55 Plt Count 209 K/mm3 (140-440) 07/13/21 03:55 Lymph % (Auto) 10.9 % (13.4-35.0) L 07/13/21 03:55 [place] % (Auto) 3.4 % (0.0-7.3) 07/13/21 03:55 Eos % (Auto) 1.3 % (0.0-4.3) 07/13/21 03:55 Baso % (Auto) 0.4 % (0.0-1.8) 07/13/21 03:55 Lymph # (Auto) 0.5 K/mm3 (1.2-5.4) L 07/13/21 03:55 [place] # (Auto) 0.1 K/mm3 (0.0-0.8) 07/13/21 03:55 Eos # (Auto) 0.1 K/mm3 (0.0-0.4) 07/13/21 03:55 Baso # (Auto) 0.0 K/mm3 (0.0-0.1) 07/13/21 03:55 Seg Neutrophils % 84.0 % (40.0-70.0) H 07/13/21 03:55 Seg Neutrophils # 3.6 K/mm3 (1.8-7.7) 07/13/21 03:55 Sodium 135 mmol/L (137-145) L 07/13/21 03:55 Potassium 4.2 mmol/L (3.6-5.0) 07/13/21 03:55 Chloride 97.2 mmol/L (98-107) L 07/13/21 03:55 Carbon Dioxide 22 mmol/L (22-30) 07/13/21 03:55 Anion Gap 20 mmol/L 07/13/21 03:55 BUN 27 mg/dL (7-17) H 07/13/21 03:55 Creatinine 1.5 mg/dL (0.6-1.2) H 07/13/21 03:55 Estimated GFR 34 ml/min 07/13/21 03:55 BUN/Creatinine Ratio 18 % 07/13/21 03:55 Glucose 281 mg/dL (65-100) H 07/13/21 03:55 POC Glucose 116 mg/dL (70-105) H 07/14/21 12:15 Calcium 8.7 mg/dL (8.4-10.2) 07/13/21 03:55 Total Bilirubin 0.30 mg/dL (0.1-1.2) 07/13/21 03:55 AST 24 units/L (5-40) 07/13/21 03:55 ALT 12 units/L (7-56) 07/13/21 03:55 Alkaline Phosphatase 76 units/L (35-129) 07/13/21 03:55 Total Protein 7.1 g/dL (6.3-8.2) 07/13/21 03:55 Albumin 4.2 g/dL (3.9-5) 07/13/21 03:55 Albumin/Globulin Ratio 1.4 % 07/13/21 03:55 TSH 3.160 mlU/mL (0.270-4.200) 07/12/21 10:42 Free T4 0.59 ng/dL (0.76-1.46) L 07/12/21 10:42 Nasal Screen MRSA (PCR) Negative (Negative) 07/13/21 06:45 Coronavirus (PCR) Negative (Negative) 07/13/21 Unknown Active Medications - Current Medications Current Medications: Generic Name Dose Route Start Last Admin Trade Name Freq PRN Reason Stop Dose Admin Acetaminophen 650 mg 07/12/21 14:14 Acetaminophen 325 Mg Tab PO Q6H PRN Pain MILD(1-3)/Fever >100.5/SOUZA Albuterol 2.5 mg 07/12/21 14:14 Albuterol 2.5 Mg/3 Ml Nebu IH Q3HRT PRN Shortness Of Breath Amlodipine Besylate 5 mg 07/14/21 10:00 07/14/21 09:08 Amlodipine 5 Mg Tab PO 5 mg QDAY JOCELYNE Administration Dicyclomine HCl 10 mg 07/12/21 14:17 Dicyclomine 10 Mg Cap PO TID PRN acid reflux Fenofibrate 145 mg 07/13/21 10:00 07/14/21 09:08 Fenofibrate 145 Mg Tab PO 145 mg DAILY JOCELYNE Administration Hydralazine HCl 10 mg 07/14/21 08:37 07/14/21 11:18 Hydralazine 20 Mg/1 Ml Inj IV 10 mg Q4HR PRN Administration Hypertension Hydromorphone HCl 0.5 mg 07/12/21 14:14 07/14/21 11:17 Hydromorphone 1 Mg/1 Ml Inj IV 0.5 mg Q23H PRN Administration Pain , Severe (7-10) Sodium Chloride 1,000 mls @ 100 mls/hr 07/12/21 16:30 07/13/21 06:52 Nacl 0.9% 1000 Ml IV 100 mls/hr DIRECT JOCELYNE Administration Dextrose 1,000 mls @ 75 mls/hr 07/14/21 12:00 D5w IV DIRECT JOCELYNE Montelukast Sodium 10 mg 07/12/21 18:00 07/13/21 18:15 Montelukast 10 Mg Tab PO 10 mg QPM JOCELYNE Administration Oxycodone/Acetaminophen 1 tab 07/12/21 14:14 07/13/21 03:19 Oxycodone /Acetaminophen 5-325mg Tab PO 1 tab Q16H PRN Administration Pain, Moderate (4-6) Pantoprazole Sodium 40 mg 07/12/21 16:30 07/14/21 09:08 Pantoprazole 40 Mg Tab PO 40 mg BIDAC JOCELYNE Administration Potassium Chloride 10 meq 07/13/21 10:00 07/14/21 09:08 Potassium Chloride Er 10 Meq Tab PO 10 meq QDAY JOCELYNE Administration Promethazine HCl 25 mg 07/12/21 14:17 Promethazine 25 Mg Tab PO Q6H PRN Nausea Quetiapine Fumarate 100 mg 07/12/21 22:00 07/13/21 21:23 Quetiapine 100 Mg Tab PO 100 mg QHS JOCELYNE Administration Ropinirole HCl 1 mg 07/12/21 14:17 Ropinirole 1 Mg Tab PO QHS PRN restless legs Sertraline HCl 100 mg 07/13/21 10:00 07/14/21 09:08 Sertraline 100 Mg Tab PO 100 mg QDAY JOCELYNE Administration Sodium Chloride 10 ml 07/12/21 17:00 07/14/21 09:12 Sodium Chloride 0.9% 10 Ml Flush Syringe IV 10 ml BID JOCELYNE Administration Sodium Chloride 10 ml 07/12/21 14:14 Sodium Chloride 0.9% 10 Ml Flush Syringe IV PRN PRN LINE FLUSH Sucralfate 1 gm 07/12/21 17:30 07/14/21 11:16 Sucralfate 1 Gm/10 Ml Oral Liqd PO 1 gm ACHS JOCELYNE Administration Tramadol HCl 50 mg 07/12/21 16:24 Tramadol 50 Mg Tab PO Q6H PRN Pain, Moderate (4-6)
[2021-07-14] MEDS: DEXTROSE 5% IN WATER 1,000 ML IV SCH (14:21)
[2021-07-14] MEDS: MONTELUKAST 10 MG TAB PO SCH (18:08)
[2021-07-14] MEDS: QUEtiapine 100 MG TAB PO SCH (21:15)
--- NOTE | 2021-07-14 23:24 | Event Note ---
Date: 07/14/21 Called by patient nurse that patient had a run of V. tach 5 beats. The patient nurse said patient had similar episode of runs of V. tach during the day. Patient is asymptomatic. EKG ordered. Lab work including magnesium and phosphorus level ordered.
[2021-07-15 01:22] LABS: Albumin 4.4 g/dL (3.9-5); Calcium 9.5 mg/dL (8.4-10.2)
[2021-07-15] MEDS: DEXTROSE 5% IN WATER 1,000 ML IV SCH (04:09)
[2021-07-15] MEDS ORDERED: MAGNESIUM SULFATE 1 GM in SODIUM CHLORIDE 0.9% 50 ML IV ONE (09:00)
[2021-07-15] MEDS ORDERED: POTASSIUM PHOSPHATE 40 MMOL in SODIUM CHLORIDE 0.9% 500 ML 500 ML IV ONE (09:00)
[2021-07-15] MEDS: SERTRALINE 100 MG TAB PO SCH (09:17)
[2021-07-15] MEDS: POTASSIUM CHLORIDE ER 10 MEQ TAB PO SCH (09:18)
[2021-07-15] MEDS: amLODIPine 5 MG TAB PO SCH (09:18)
[2021-07-15] MEDS: SUCRALFATE 1 GM/10 ML ORAL LIQD PO SCH ×4 (09:18→21:12)
[2021-07-15] MEDS: FENOFIBRATE 145 MG TAB PO SCH (09:18)
[2021-07-15] MEDS: PANTOPRAZOLE 40 MG TAB PO SCH ×2 (09:18→16:54)
--- NOTE | 2021-07-15 10:33 | Consultation ---
History of Present Illness Consult date: 07/15/21 Consult reason: other (NSVT) History of present illness: Patient admitted with adrenal crisis, profound hypoglycemia and altered mental status. Cardiology consulted because of 5 beat run of asymptomatic NSVT. Patient denies chest pain or shortness of breath. Patient denies prior history of cardiac disease. ECG showing no ischemic changes. Telemetry showing normal sinus rhythm. Past History Past Medical History: arthritis, diabetes, GERD, hypertension, other (See HPI) Past Surgical History: cholecystectomy Social history: , lives with family. denies: smoking, alcohol abuse, prescription drug abuse Family history: diabetes, hypertension Medications and Allergies Allergies Allergy/AdvReac Type Severity Reaction Status Date / Time codeine Allergy Mild VOMITING,ITCHING, Verified 07/14/21 11:03 RASH erythromycin base Allergy Mild VOMITING,ITCHING, Verified 07/14/21 11:03 [Erythromycin Base] RASH metoclopramide HCl Allergy Mild VOMITING,ITCHING, Verified 07/14/21 11:03 [From Reglan] RASH pentazocine lactate Allergy Mild VOMITING,ITCHING, Verified 07/14/21 11:03 [From Talwin] RASH propoxyphene HCl Allergy Mild VOMITING,ITCHING, Verified 07/14/21 11:03 [From Darvon] RASH Sulfa (Sulfonamide Allergy Mild VOMITING,ITCHING, Verified 07/14/21 11:03 Antibiotics) RASH paper tape Allergy Mild Rash Uncoded 07/14/21 11:03 Home Medications Medication Instructions Recorded Confirmed Last Taken Type Dicyclomine [Bentyl] 10 mg PO TID PRN 09/07/13 07/13/21 09/10/13 21:00 History Potassium Chloride [Klor-Con 10] 10 meq PO QDAY 09/07/13 07/13/21 07/11/21 09:00 History Promethazine [Phenergan] 25 mg PO Q6H PRN 09/07/13 07/13/21 09/09/13 History diazePAM TAB [Valium] 5 mg PO TID PRN 09/07/13 07/13/21 09/04/13 History traMADoL [Ultram 50 MG tab] 50 mg PO Q6HR PRN 09/07/13 07/13/21 09/10/13 22:00 History Amlodipine Besylate [Norvasc] 5 mg PO QDAY 09/06/2207/13/21 07/11/21 09:00 History Fenofibrate 160 mg PO QDAY 05/12/21 07/13/21 07/11/21 09:00 History LORazepam [Ativan] 1 mg PO TID PRN 05/12/21 07/13/21 Unknown History Montelukast [Singulair] 10 mg PO QPM 05/12/21 07/13/21 07/11/21 22:00 History Sertraline [Zoloft] 100 mg PO QDAY 05/12/21 07/13/21 07/11/21 09:00 History clonazePAM [KlonoPIN] 0.5 mg PO BID PRN 05/12/21 07/13/21 Unknown History Hydrocortisone [Cortef TAB] 20 mg PO Q12HR 30 Days #60 tablet 05/15/21 07/13/21 07/11/21 21:00 Rx Pantoprazole [Protonix TAB] 40 mg PO BIDAC 30 Days #60 tablet 05/15/21 07/13/21 07/11/21 22:00 Rx QUEtiapine [SEROquel] 100 mg PO QHS tablet 05/15/21 07/13/21 07/11/21 22:00 Rx Active Meds: Active Medications Acetaminophen (Acetaminophen 325 Mg Tab) 650 mg PO Q6H PRN PRN Reason: Pain MILD(1-3)/Fever >100.5/SOUZA Albuterol (Albuterol 2.5 Mg/3 Ml Nebu) 2.5 mg IH Q3HRT PRN PRN Reason: Shortness Of Breath Amlodipine Besylate (Amlodipine 5 Mg Tab) 5 mg PO QDAY [facility] Last Admin: 07/15/21 09:18 Dose: 5 mg Documented by: Dicyclomine HCl (Dicyclomine 10 Mg Cap) 10 mg PO TID PRN PRN Reason: acid reflux Fenofibrate (Fenofibrate 145 Mg Tab) 145 mg PO DAILY [facility] Last Admin: 07/15/21 09:18 Dose: 145 mg Documented by: Hydralazine HCl (Hydralazine 20 Mg/1 Ml Inj) 10 mg IV Q4HR PRN PRN Reason: Hypertension Last Admin: 07/14/21 21:15 Dose: 10 mg Documented by: Hydromorphone HCl (Hydromorphone 1 Mg/1 Ml Inj) 0.5 mg IV Q23H PRN PRN Reason: Pain , Severe (7-10) Last Admin: 07/14/21 11:17 Dose: 0.5 mg Documented by: Potassium Phosphate 40 mmol/ (Sodium Chloride) 513.3333 mls @ 83 mls/hr IV ONCE ONE Stop: 07/15/21 15:11 Last Admin: 07/15/21 09:23 Dose: 83 mls/hr Documented by: Montelukast Sodium (Montelukast 10 Mg Tab) 10 mg PO QPM [facility] Last Admin: 07/14/21 18:08 Dose: 10 mg Documented by: Oxycodone/Acetaminophen (Oxycodone /Acetaminophen 5-325mg Tab) 1 tab PO Q16H PRN PRN Reason: Pain, Moderate (4-6) Last Admin: 07/13/21 03:19 Dose: 1 tab Documented by: Pantoprazole Sodium (Pantoprazole 40 Mg Tab) 40 mg PO BIDAC [facility] Last Admin: 07/15/21 09:18 Dose: 40 mg Documented by: Potassium Chloride (Potassium Chloride Er 10 Meq Tab) 10 meq PO QDAY [facility] Last Admin: 07/15/21 09:18 Dose: 10 meq Documented by: Promethazine HCl (Promethazine 25 Mg Tab) 25 mg PO Q6H PRN PRN Reason: Nausea Quetiapine Fumarate (Quetiapine 100 Mg Tab) 100 mg PO QHS [facility] Last Admin: 07/14/21 21:15 Dose: 100 mg Documented by: Ropinirole HCl (Ropinirole 1 Mg Tab) 1 mg PO QHS PRN PRN Reason: restless legs Sertraline HCl (Sertraline 100 Mg Tab) 100 mg PO QDAY [facility] Last Admin: 07/15/21 09:17 Dose: 100 mg Documented by: Sodium Chloride (Sodium Chloride 0.9% 10 Ml Flush Syringe) 10 ml IV BID [facility] Last Admin: 07/15/21 09:18 Dose: 10 ml Documented by: Sodium Chloride (Sodium Chloride 0.9% 10 Ml Flush Syringe) 10 ml IV PRN PRN PRN Reason: LINE FLUSH Sucralfate (Sucralfate 1 Gm/10 Ml Oral Liqd) 1 gm PO ACHS [facility] Last Admin: 07/15/21 09:18 Dose: 1 gm Documented by: Tramadol HCl (Tramadol 50 Mg Tab) 50 mg PO Q6H PRN PRN Reason: Pain, Moderate (4-6) Review of Systems All systems: negative Physical Examination Vital Signs Temp Pulse Resp BP Pulse Ox 97.9 F 97 H 16 153/79 96 07/12/21 09:49 07/12/21 09:49 07/12/21 09:49 07/12/21 09:49 07/12/21 09:49 General appearance: no acute distress HEENT: Positive: PERRL Neck: Positive: neck supple Cardiac: Positive: Reg Rate and Rhythm Lungs: Positive: Normal Exam Results 07/13/21 03:55 07/15/21 00:10 Cardiac Enzymes 07/12/21 07/12/21 07/12/21 Range/Units 10:00 10:42 10:42 WBC 5.9 (4.5-11.0) K/mm3 RBC 4.11 (3.65-5.03) M/mm3 Hgb 11.1 (10.1-14.3) gm/dl Hct 34.4 (30.3-42.9) % MCV 84 (79-97) fl MCH 27 L (28-32) pg MCHC 32 (30-34) % RDW 15.4 H (13.2-15.2) % Plt Count 238 (140-440) K/mm3 Lymph % (Auto) 6.0 L (13.4-35.0) % [place] % (Auto) 3.9 (0.0-7.3) % Eos % (Auto) 0.9 (0.0-4.3) % Baso % (Auto) 0.2 (0.0-1.8) % Lymph # (Auto) 0.4 L (1.2-5.4) K/mm3 [place] # (Auto) 0.2 (0.0-0.8) K/mm3 Eos # (Auto) 0.1 (0.0-0.4) K/mm3 Baso # (Auto) 0.0 (0.0-0.1) K/mm3 Seg Neutrophils % 89.0 H (40.0-70.0) % Seg Neutrophils # 5.3 (1.8-7.7) K/mm3 Sodium 141 (137-145) mmol/L Potassium 3.9 (3.6-5.0) mmol/L Chloride 102.0 (98-107) mmol/L Carbon Dioxide 23 (22-30) mmol/L Anion Gap 20 mmol/L BUN 33 H (7-17) mg/dL Creatinine 1.5 H (0.6-1.2) mg/dL Estimated GFR 34 ml/min BUN/Creatinine Ratio 22 % Glucose 86 (65-100) mg/dL POC Glucose 81 (70-105) mg/dL Calcium 8.9 (8.4-10.2) mg/dL Phosphorus (2.5-4.5) mg/dL Magnesium (1.7-2.3) mg/dL Total Bilirubin 0.30 (0.1-1.2) mg/dL AST (5-40) units/L ALT 11 (7-56) units/L Alkaline Phosphatase 79 (35-129) units/L Total Protein 7.6 (6.3-8.2) g/dL Albumin 4.4 (3.9-5) g/dL Albumin/Globulin Ratio 1.4 % TSH (0.270-4.200) mlU/mL Free T4 (0.76-1.46) ng/dL Nasal Screen MRSA (PCR) (Negative) Coronavirus (PCR) (Negative) 07/12/21 07/12/21 07/12/21 Range/Units 10:42 12:36 14:31 WBC (4.5-11.0) K/mm3 RBC (3.65-5.03) M/mm3 Hgb (10.1-14.3) gm/dl Hct (30.3-42.9) % MCV (79-97) fl MCH (28-32) pg MCHC (30-34) % RDW (13.2-15.2) % Plt Count (140-440) K/mm3 Lymph % (Auto) (13.4-35.0) % [place] % (Auto) (0.0-7.3) % Eos % (Auto) (0.0-4.3) % Baso % (Auto) (0.0-1.8) % Lymph # (Auto) (1.2-5.4) K/mm3 [place] # (Auto) (0.0-0.8) K/mm3 Eos # (Auto) (0.0-0.4) K/mm3 Baso # (Auto) (0.0-0.1) K/mm3 Seg Neutrophils % (40.0-70.0) % Seg Neutrophils # (1.8-7.7) K/mm3 Sodium (137-145) mmol/L Potassium (3.6-5.0) mmol/L Chloride (98-107) mmol/L Carbon Dioxide (22-30) mmol/L Anion Gap mmol/L BUN (7-17) mg/dL Creatinine (0.6-1.2) mg/dL Estimated GFR ml/min BUN/Creatinine Ratio % Glucose (65-100) mg/dL POC Glucose 58 L 211 H (70-105) mg/dL Calcium (8.4-10.2) mg/dL Phosphorus (2.5-4.5) mg/dL Magnesium (1.7-2.3) mg/dL Total Bilirubin (0.1-1.2) mg/dL AST (5-40) units/L ALT (7-56) units/L Alkaline Phosphatase (35-129) units/L Total Protein (6.3-8.2) g/dL Albumin (3.9-5) g/dL Albumin/Globulin Ratio % TSH 3.160 (0.270-4.200) mlU/mL Free T4 0.59 L (0.76-1.46) ng/dL Nasal Screen MRSA (PCR) (Negative) Coronavirus (PCR) (Negative) 07/12/21 07/13/21 07/13/21 Range/Units 21:11 03:55 03:55 WBC 4.3 L (4.5-11.0) K/mm3 RBC 3.89 (3.65-5.03) M/mm3 Hgb 10.2 (10.1-14.3) gm/dl Hct 32.0 (30.3-42.9) % MCV 83 (79-97) fl MCH 26 L (28-32) pg MCHC 32 (30-34) % RDW 15.4 H (13.2-15.2) % Plt Count 209 (140-440) K/mm3 Lymph % (Auto) 10.9 L (13.4-35.0) % [place] % (Auto) 3.4 (0.0-7.3) % Eos % (Auto) 1.3 (0.0-4.3) % Baso % (Auto) 0.4 (0.0-1.8) % Lymph # (Auto) 0.5 L (1.2-5.4) K/mm3 [place] # (Auto) 0.1 (0.0-0.8) K/mm3 Eos # (Auto) 0.1 (0.0-0.4) K/mm3 Baso # (Auto) 0.0 (0.0-0.1) K/mm3 Seg Neutrophils % 84.0 H (40.0-70.0) % Seg Neutrophils # 3.6 (1.8-7.7) K/mm3 Sodium 135 L (137-145) mmol/L Potassium 4.2 (3.6-5.0) mmol/L Chloride 97.2 L (98-107) mmol/L Carbon Dioxide 22 (22-30) mmol/L Anion Gap 20 mmol/L BUN 27 H (7-17) mg/dL Creatinine 1.5 H (0.6-1.2) mg/dL Estimated GFR 34 ml/min BUN/Creatinine Ratio 18 % Glucose 281 H (65-100) mg/dL POC Glucose 177 H (70-105) mg/dL Calcium 8.7 (8.4-10.2) mg/dL Phosphorus (2.5-4.5) mg/dL Magnesium (1.7-2.3) mg/dL Total Bilirubin 0.30 (0.1-1.2) mg/dL AST (5-40) units/L ALT 12 (7-56) units/L Alkaline Phosphatase 76 (35-129) units/L Total Protein 7.1 (6.3-8.2) g/dL Albumin 4.2 (3.9-5) g/dL Albumin/Globulin Ratio 1.4 % TSH (0.270-4.200) mlU/mL Free T4 (0.76-1.46) ng/dL Nasal Screen MRSA (PCR) (Negative) Coronavirus (PCR) (Negative) 07/13/21 07/13/21 07/13/21 Range/Units 06:29 06:45 07:48 WBC (4.5-11.0) K/mm3 RBC (3.65-5.03) M/mm3 Hgb (10.1-14.3) gm/dl Hct (30.3-42.9) % MCV (79-97) fl MCH (28-32) pg MCHC (30-34) % RDW (13.2-15.2) % Plt Count (140-440) K/mm3 Lymph % (Auto) (13.4-35.0) % [place] % (Auto) (0.0-7.3) % Eos % (Auto) (0.0-4.3) % Baso % (Auto) (0.0-1.8) % Lymph # (Auto) (1.2-5.4) K/mm3 [place] # (Auto) (0.0-0.8) K/mm3 Eos # (Auto) (0.0-0.4) K/mm3 Baso # (Auto) (0.0-0.1) K/mm3 Seg Neutrophils % (40.0-70.0) % Seg Neutrophils # (1.8-7.7) K/mm3 Sodium (137-145) mmol/L Potassium (3.6-5.0) mmol/L Chloride (98-107) mmol/L Carbon Dioxide (22-30) mmol/L Anion Gap mmol/L BUN (7-17) mg/dL Creatinine (0.6-1.2) mg/dL Estimated GFR ml/min BUN/Creatinine Ratio % Glucose (65-100) mg/dL POC Glucose 268 H 215 H (70-105) mg/dL Calcium (8.4-10.2) mg/dL Phosphorus (2.5-4.5) mg/dL Magnesium (1.7-2.3) mg/dL Total Bilirubin (0.1-1.2) mg/dL AST (5-40) units/L ALT (7-56) units/L Alkaline Phosphatase (35-129) units/L Total Protein (6.3-8.2) g/dL Albumin (3.9-5) g/dL Albumin/Globulin Ratio % TSH (0.270-4.200) mlU/mL Free T4 (0.76-1.46) ng/dL Nasal Screen MRSA (PCR) Negative (Negative) Coronavirus (PCR) (Negative) 11/11/21 11/11/21 11/11/21 Range/Units 11:36 15:55 Unknown WBC (4.5-11.0) K/mm3 RBC (3.65-5.03) M/mm3 Hgb (10.1-14.3) gm/dl Hct (30.3-42.9) % MCV (79-97) fl MCH (28-32) pg MCHC (30-34) % RDW (13.2-15.2) % Plt Count (140-440) K/mm3 Lymph % (Auto) (13.4-35.0) % [place] % (Auto) (0.0-7.3) % Eos % (Auto) (0.0-4.3) % Baso % (Auto) (0.0-1.8) % Lymph # (Auto) (1.2-5.4) K/mm3 [place] # (Auto) (0.0-0.8) K/mm3 Eos # (Auto) (0.0-0.4) K/mm3 Baso # (Auto) (0.0-0.1) K/mm3 Seg Neutrophils % (40.0-70.0) % Seg Neutrophils # (1.8-7.7) K/mm3 Sodium (137-145) mmol/L Potassium (3.6-5.0) mmol/L Chloride (98-107) mmol/L Carbon Dioxide (22-30) mmol/L Anion Gap mmol/L BUN (7-17) mg/dL Creatinine (0.6-1.2) mg/dL Estimated GFR ml/min BUN/Creatinine Ratio % Glucose (65-100) mg/dL POC Glucose 160 H 183 H (70-105) mg/dL Calcium (8.4-10.2) mg/dL Phosphorus (2.5-4.5) mg/dL Magnesium (1.7-2.3) mg/dL Total Bilirubin (0.1-1.2) mg/dL AST (5-40) units/L ALT (7-56) units/L Alkaline Phosphatase (35-129) units/L Total Protein (6.3-8.2) g/dL Albumin (3.9-5) g/dL Albumin/Globulin Ratio % TSH (0.270-4.200) mlU/mL Free T4 (0.76-1.46) ng/dL Nasal Screen MRSA (PCR) (Negative) Coronavirus (PCR) Negative (Negative) 07/14/21 07/14/21 07/14/21 Range/Units 01:17 05:23 08:03 WBC (4.5-11.0) K/mm3 RBC (3.65-5.03) M/mm3 Hgb (10.1-14.3) gm/dl Hct (30.3-42.9) % MCV (79-97) fl MCH (28-32) pg MCHC (30-34) % RDW (13.2-15.2) % Plt Count (140-440) K/mm3 Lymph % (Auto) (13.4-35.0) % [place] % (Auto) (0.0-7.3) % Eos % (Auto) (0.0-4.3) % Baso % (Auto) (0.0-1.8) % Lymph # (Auto) (1.2-5.4) K/mm3 [place] # (Auto) (0.0-0.8) K/mm3 Eos # (Auto) (0.0-0.4) K/mm3 Baso # (Auto) (0.0-0.1) K/mm3 Seg Neutrophils % (40.0-70.0) % Seg Neutrophils # (1.8-7.7) K/mm3 Sodium (137-145) mmol/L Potassium (3.6-5.0) mmol/L Chloride (98-107) mmol/L Carbon Dioxide (22-30) mmol/L Anion Gap mmol/L BUN (7-17) mg/dL Creatinine (0.6-1.2) mg/dL Estimated GFR ml/min BUN/Creatinine Ratio % Glucose (65-100) mg/dL POC Glucose 106 H 88 59 L (70-105) mg/dL Calcium (8.4-10.2) mg/dL Phosphorus (2.5-4.5) mg/dL Magnesium (1.7-2.3) mg/dL Total Bilirubin (0.1-1.2) mg/dL AST (5-40) units/L ALT (7-56) units/L Alkaline Phosphatase (35-129) units/L Total Protein (6.3-8.2) g/dL Albumin (3.9-5) g/dL Albumin/Globulin Ratio % TSH (0.270-4.200) mlU/mL Free T4 (0.76-1.46) ng/dL Nasal Screen MRSA (PCR) (Negative) Coronavirus (PCR) (Negative) 07/14/21 07/14/21 07/14/21 Range/Units 10:31 12:15 16:48 WBC (4.5-11.0) K/mm3 RBC (3.65-5.03) M/mm3 Hgb (10.1-14.3) gm/dl Hct (30.3-42.9) % MCV (79-97) fl MCH (28-32) pg MCHC (30-34) % RDW (13.2-15.2) % Plt Count (140-440) K/mm3 Lymph % (Auto) (13.4-35.0) % [place] % (Auto) (0.0-7.3) % Eos % (Auto) (0.0-4.3) % Baso % (Auto) (0.0-1.8) % Lymph # (Auto) (1.2-5.4) K/mm3 [place] # (Auto) (0.0-0.8) K/mm3 Eos # (Auto) (0.0-0.4) K/mm3 Baso # (Auto) (0.0-0.1) K/mm3 Seg Neutrophils % (40.0-70.0) % Seg Neutrophils # (1.8-7.7) K/mm3 Sodium (137-145) mmol/L Potassium (3.6-5.0) mmol/L Chloride (98-107) mmol/L Carbon Dioxide (22-30) mmol/L Anion Gap mmol/L BUN (7-17) mg/dL Creatinine (0.6-1.2) mg/dL Estimated GFR ml/min BUN/Creatinine Ratio % Glucose (65-100) mg/dL POC Glucose 116 H 116 H 140 H (70-105) mg/dL Calcium (8.4-10.2) mg/dL Phosphorus (2.5-4.5) mg/dL Magnesium (1.7-2.3) mg/dL Total Bilirubin (0.1-1.2) mg/dL AST (5-40) units/L ALT (7-56) units/L Alkaline Phosphatase (35-129) units/L Total Protein (6.3-8.2) g/dL Albumin (3.9-5) g/dL Albumin/Globulin Ratio % TSH (0.270-4.200) mlU/mL Free T4 (0.76-1.46) ng/dL Nasal Screen MRSA (PCR) (Negative) Coronavirus (PCR) (Negative) 07/14/21 07/14/21 07/15/21 Range/Units 20:01 23:19 00:10 WBC (4.5-11.0) K/mm3 RBC (3.65-5.03) M/mm3 Hgb (10.1-14.3) gm/dl Hct (30.3-42.9) % MCV (79-97) fl MCH (28-32) pg MCHC (30-34) % RDW (13.2-15.2) % Plt Count (140-440) K/mm3 Lymph % (Auto) (13.4-35.0) % [place] % (Auto) (0.0-7.3) % Eos % (Auto) (0.0-4.3) % Baso % (Auto) (0.0-1.8) % Lymph # (Auto) (1.2-5.4) K/mm3 [place] # (Auto) (0.0-0.8) K/mm3 Eos # (Auto) (0.0-0.4) K/mm3 Baso # (Auto) (0.0-0.1) K/mm3 Seg Neutrophils % (40.0-70.0) % Seg Neutrophils # (1.8-7.7) K/mm3 Sodium 141 (137-145) mmol/L Potassium 3.7 (3.6-5.0) mmol/L Chloride 102.5 (98-107) mmol/L Carbon Dioxide 21 L (22-30) mmol/L Anion Gap 21 mmol/L BUN 25 H (7-17) mg/dL Creatinine 1.5 H (0.6-1.2) mg/dL Estimated GFR 34 ml/min BUN/Creatinine Ratio 17 % Glucose 112 H (65-100) mg/dL POC Glucose 145 H 108 H (70-105) mg/dL Calcium 9.5 (8.4-10.2) mg/dL Phosphorus 2.40 L (2.5-4.5) mg/dL Magnesium 1.80 (1.7-2.3) mg/dL Total Bilirubin 0.40 (0.1-1.2) mg/dL AST 46 H (5-40) units/L ALT 17 (7-56) units/L Alkaline Phosphatase 85 (35-129) units/L Total Protein 7.7 (6.3-8.2) g/dL Albumin 4.4 (3.9-5) g/dL Albumin/Globulin Ratio 1.3 % TSH (0.270-4.200) mlU/mL Free T4 (0.76-1.46) ng/dL Nasal Screen MRSA (PCR) (Negative) Coronavirus (PCR) (Negative) 07/15/21 07/15/21 Range/Units 04:04 07:47 WBC (4.5-11.0) K/mm3 RBC (3.65-5.03) M/mm3 Hgb (10.1-14.3) gm/dl Hct (30.3-42.9) % MCV (79-97) fl MCH (28-32) pg MCHC (30-34) % RDW (13.2-15.2) % Plt Count (140-440) K/mm3 Lymph % (Auto) (13.4-35.0) % [place] % (Auto) (0.0-7.3) % Eos % (Auto) (0.0-4.3) % Baso % (Auto) (0.0-1.8) % Lymph # (Auto) (1.2-5.4) K/mm3 [place] # (Auto) (0.0-0.8) K/mm3 Eos # (Auto) (0.0-0.4) K/mm3 Baso # (Auto) (0.0-0.1) K/mm3 Seg Neutrophils % (40.0-70.0) % Seg Neutrophils # (1.8-7.7) K/mm3 Sodium (137-145) mmol/L Potassium (3.6-5.0) mmol/L Chloride (98-107) mmol/L Carbon Dioxide (22-30) mmol/L Anion Gap mmol/L BUN (7-17) mg/dL Creatinine (0.6-1.2) mg/dL Estimated GFR ml/min BUN/Creatinine Ratio % Glucose (65-100) mg/dL POC Glucose 125 H 97 (70-105) mg/dL Calcium (8.4-10.2) mg/dL Phosphorus (2.5-4.5) mg/dL Magnesium (1.7-2.3) mg/dL Total Bilirubin (0.1-1.2) mg/dL AST (5-40) units/L ALT (7-56) units/L Alkaline Phosphatase (35-129) units/L Total Protein (6.3-8.2) g/dL Albumin (3.9-5) g/dL Albumin/Globulin Ratio % TSH (0.270-4.200) mlU/mL Free T4 (0.76-1.46) ng/dL Nasal Screen MRSA (PCR) (Negative) Coronavirus (PCR) (Negative) Comprehensive Metabolic Panel 07/15/21 Range/Units 00:10 Sodium 141 (137-145) mmol/L Potassium 3.7 (3.6-5.0) mmol/L Chloride 102.5 (98-107) mmol/L Carbon Dioxide 21 L (22-30) mmol/L BUN 25 H (7-17) mg/dL Creatinine 1.5 H (0.6-1.2) mg/dL Glucose 112 H (65-100) mg/dL Calcium 9.5 (8.4-10.2) mg/dL AST 46 H (5-40) units/L ALT 17 (7-56) units/L Alkaline Phosphatase 85 (35-129) units/L Total Protein 7.7 (6.3-8.2) g/dL Albumin 4.4 (3.9-5) g/dL - EKG Interpretation EKG: sinus rhythm EKG interpretations - Telemetry EKG Rhythm: Sinus Rhythm Assessment and Plan NSVT, 5 beats Asymptomatic, 1 episode Adrenal crisis Essential hypertension Hyperlipidemia Recommendations: Start low dose toprol XL Echocardiogram to evaluate LVEF (can be performed as outpatient if discharged today or tomorrow) Follow-up as outpatient. Patient given our contact information
--- NOTE | 2021-07-15 10:52 | Progress Note ---
Assessment and Plan Assessment and plan: 75 YO Female with HTN, GERD, OA, Adrenal Insufficiency, DM presents to ED for evaluation. Patient is confused and lethargic the time my evaluation unable to provide detailed history. Patient provides only minimal history. Additional history brought by EMS staff, ED staff, as well as patient who was made available by telephone for interview. As per this patient had experienced increased fatigue, confusion, episodes of agitation over the past 3 days with persistent and worsening symptoms over the same timeframe. Patient was found to be more confused today. The patient ran out of hydrocortisone 2 weeks ago and has been noncompliant with medication since that time. EMS was notified and upon arrival the patient was found to be in distress and found to have a serum glucose of 20. Patient given an ampule of D50 and subsequent transported to [facility] for further care and evaluation of the aforementioned symptoms. The patient was seen and evaluated in the emergency department. All lab and imaging studies reviewed. The patient was found to have adrenal insufficiency crisis complicated by hypoglycemia, as well as metabolic encephalopathy, and acute kidney injury. Patient admitted to [facility] and initiated on IV hydrocortisone replacement therapy, D5 drip, with concomitant IV fluid resuscitation therapy. No reports of fever, chills, chest pain, palpitation or productive cough, skin rash, recent contact, or known exposure to COVID-19. Prior admission on 05/09/2021 reviewed. All medication listed at time of admission has been reconciled. Patient has diminished cognition at time of evaluation but has a positive gag reflex and is able to protect her airway without difficulty. 07/13: Patient seen and examined, she is showing clinical improvement. Will discontinue D10 at this time, continue steroids. Start diet, anticipate discharge in am. 07/14:Patient noted to have hypoglycemia mildly today not so sure how her diet was in the last 24 hours we will discussed with nursing staff to keep an accurate documentation of how much she is eating. She is on a regular meal at this time review of records from her adrenal work-up shows an elevated cortisol level. I think this patient will benefit from an school counselor evaluation outpatient until at that time we will likely need to put her on some type of glucose supplementation until full work-up is completed outpatient. Hydrocortisone has been stopped will monitor to ensure no blood pressure complications. 07/15: Overnight patient had short run of V. tach replace potassium and magnes iu cardiology to start the patient on Toprol will need to monitor this closely especially the patient is experiencing some hypoglycemic episode. I also stopped the D5 at this time again review of records in the past does not show adrenal insufficiency as cortisol level was elevated. Nevertheless I have discontinued the hydrocortisone as mentioned previously have discussed this with the patient patient will likely need glucose supplementation outpatient daily until seen by school counselor she has an appointment upcoming with one of the school counselor. Possible discharge in a.m. if clinically stable (1) Adrenal crisis syndrome Current Visit: Yes Status: Acute Plan to address problem: IV hydrocortisone bolus, IV hydrocortisone therapy, IV fluid resuscitation therapy, neuro check, supportive care, blood pressure monitoring. (2) Acute kidney injury (ELISA) with acute tubular necrosis (ATN) Current Visit: Yes Status: Acute Plan to address problem: IV fluid resuscitation therapy, BMP, repeat BMP in a.m. (3) Metabolic encephalopathy Current Visit: Yes Status: Acute Plan to address problem: Neuro check, CT scan head from prior admission reviewed, seizure precautions, treat adrenal insufficiency (4) Hypoglycemia Current Visit: Yes Status: Acute Plan to address problem: Dextrose drip, Accu-Chek every 6 hours, continue hypoglycemia protocol (5) DVT prophylaxis Current Visit: Yes Status: Acute Plan to address problem: SCD to bilateral lower extremities while in bed (6) Advance care planning Current Visit: Yes Status: Acute Plan to address problem: Disease education conducted, care plan discussed, diagnoses discussed, prognosis discussed, patient is full code, patient family acknowledges understanding agree with care plan. Patient family counseled outpatient medication compliance. +30 minutes. History Interval history: Patient seen and examined, no new complaints. Hospitalist Physical - Physical exam Narrative exam: General appearance: Present: No distress - EENT Eyes: Present: PERRL ENT: clear oral mucosa, hearing decreased - Neck Neck: Present: supple, normal ROM - Respiratory Respiratory effort: normal Respiratory: bilateral: CTA - Cardiovascular Heart Sounds: Present: S1 & S2. Absent: rub, click - Extremities Extremities: pulses symmetrical, No edema Peripheral Pulses: within normal limits - Abdominal General gastrointestinal: Present: soft, non-tender, non-distended, normal bowel sounds Female genitourinary: Present: normal - Integumentary Integumentary: Present: clear, dry, clammy, decreased turgor - Musculoskeletal Musculoskeletal: generalized weakness - Psychiatric Psychiatric: no appropriate mood/affect, no intact judgment & insight, no memory intact - Neurologic Neurologic: CNII-XII intact, no focal deficits, moves all extremities, no gait normal - Constitutional Vitals: Temp Pulse Resp BP Pulse Ox 97.8 F 111 H 18 175/57 99 07/15/21 07:47 07/15/21 09:18 07/15/21 07:47 07/15/21 09:18 07/15/21 07:47 General appearance: Present: no acute distress Results - Labs CBC & Chem 7: 07/13/21 03:55 07/15/21 00:10 Labs: Laboratory Last Values WBC 4.3 K/mm3 (4.5-11.0) L 07/13/21 03:55 RBC 3.89 M/mm3 (3.65-5.03) 07/13/21 03:55 Hgb 10.2 gm/dl (10.1-14.3) 07/13/21 03:55 Hct 32.0 % (30.3-42.9) 07/13/21 03:55 MCV 83 fl (79-97) 07/13/21 03:55 MCH 26 pg (28-32) L 07/13/21 03:55 MCHC 32 % (30-34) 07/13/21 03:55 RDW 15.4 % (13.2-15.2) H 07/13/21 03:55 Plt Count 209 K/mm3 (140-440) 07/13/21 03:55 Lymph % (Auto) 10.9 % (13.4-35.0) L 07/13/21 03:55 Whitley % (Auto) 3.4 % (0.0-7.3) 07/13/21 03:55 Eos % (Auto) 1.3 % (0.0-4.3) 07/13/21 03:55 Baso % (Auto) 0.4 % (0.0-1.8) 07/13/21 03:55 Lymph # (Auto) 0.5 K/mm3 (1.2-5.4) L 07/13/21 03:55 Whitley # (Auto) 0.1 K/mm3 (0.0-0.8) 07/13/21 03:55 Eos # (Auto) 0.1 K/mm3 (0.0-0.4) 07/13/21 03:55 Baso # (Auto) 0.0 K/mm3 (0.0-0.1) 07/13/21 03:55 Seg Neutrophils % 84.0 % (40.0-70.0) H 07/13/21 03:55 Seg Neutrophils # 3.6 K/mm3 (1.8-7.7) 07/13/21 03:55 Sodium 141 mmol/L (137-145) 07/15/21 00:10 Potassium 3.7 mmol/L (3.6-5.0) 07/15/21 00:10 Chloride 102.5 mmol/L (98-107) 07/15/21 00:10 Carbon Dioxide 21 mmol/L (22-30) L 07/15/21 00:10 Anion Gap 21 mmol/L 07/15/21 00:10 BUN 25 mg/dL (7-17) H 07/15/21 00:10 Creatinine 1.5 mg/dL (0.6-1.2) H 07/15/21 00:10 Estimated GFR 34 ml/min 07/15/21 00:10 BUN/Creatinine Ratio 17 % 07/15/21 00:10 Glucose 112 mg/dL (65-100) H 07/15/21 00:10 POC Glucose 97 mg/dL (70-105) 07/15/21 07:47 Calcium 9.5 mg/dL (8.4-10.2) 07/15/21 00:10 Phosphorus 2.40 mg/dL (2.5-4.5) L 07/15/21 00:10 Magnesium 1.80 mg/dL (1.7-2.3) 07/15/21 00:10 Total Bilirubin 0.40 mg/dL (0.1-1.2) 07/15/21 00:10 AST 46 units/L (5-40) H 07/15/21 00:10 ALT 17 units/L (7-56) 07/15/21 00:10 Alkaline Phosphatase 85 units/L (35-129) 07/15/21 00:10 Total Protein 7.7 g/dL (6.3-8.2) 07/15/21 00:10 Albumin 4.4 g/dL (3.9-5) 07/15/21 00:10 Albumin/Globulin Ratio 1.3 % 07/15/21 00:10 TSH 3.160 mlU/mL (0.270-4.200) 07/12/21 10:42 Free T4 0.59 ng/dL (0.76-1.46) L 07/12/21 10:42 Nasal Screen MRSA (PCR) Negative (Negative) 07/13/21 06:45 Coronavirus (PCR) Negative (Negative) 07/13/21 Unknown [place]/IV: Voiding Method Toilet Active Medications - Current Medications Current Medications: Generic Name Dose Route Start Last Admin Trade Name Freq PRN Reason Stop Dose Admin Acetaminophen 650 mg 07/12/21 14:14 Acetaminophen 325 Mg Tab PO Q6H PRN Pain MILD(1-3)/Fever >100.5/SOUZA Albuterol 2.5 mg 07/12/21 14:14 Albuterol 2.5 Mg/3 Ml Nebu IH Q3HRT PRN Shortness Of Breath Amlodipine Besylate 5 mg 07/14/21 10:00 07/15/21 09:18 Amlodipine 5 Mg Tab PO 5 mg QDAY JOCELYNE Administration Dicyclomine HCl 10 mg 07/12/21 14:17 Dicyclomine 10 Mg Cap PO TID PRN acid reflux Fenofibrate 145 mg 07/13/21 10:00 07/15/21 09:18 Fenofibrate 145 Mg Tab PO 145 mg DAILY JOCELYNE Administration Hydralazine HCl 10 mg 07/14/21 08:37 07/14/21 21:15 Hydralazine 20 Mg/1 Ml Inj IV 10 mg Q4HR PRN Administration Hypertension Hydromorphone HCl 0.5 mg 07/12/21 14:14 07/14/21 11:17 Hydromorphone 1 Mg/1 Ml Inj IV 0.5 mg Q23H PRN Administration Pain , Severe (7-10) Potassium Phosphate 40 mmol/ 513.3333 mls @ 83 mls/hr 07/15/21 09:00 07/15/21 09:23 Sodium Chloride IV 07/15/21 15:11 83 mls/hr ONCE ONE Administration Metoprolol Succinate 25 mg 07/15/21 11:00 Metoprolol Succinate Xl 25 Mg Tab PO QDAY [facility] Montelukast Sodium 10 mg 07/12/21 18:00 07/14/21 18:08 Montelukast 10 Mg Tab PO 10 mg QPM JOCELYNE Administration Oxycodone/Acetaminophen 1 tab 07/12/21 14:14 07/13/21 03:19 Oxycodone /Acetaminophen 5-325mg Tab PO 1 tab Q16H PRN Administration Pain, Moderate (4-6) Pantoprazole Sodium 40 mg 07/12/21 16:30 07/15/21 09:18 Pantoprazole 40 Mg Tab PO 40 mg BIDAC JOCELYNE Administration Potassium Chloride 10 meq 07/13/21 10:00 07/15/21 09:18 Potassium Chloride Er 10 Meq Tab PO 10 meq QDAY JOCELYNE Administration Promethazine HCl 25 mg 07/12/21 14:17 Promethazine 25 Mg Tab PO Q6H PRN Nausea Quetiapine Fumarate 100 mg 07/12/21 22:00 07/14/21 21:15 Quetiapine 100 Mg Tab PO 100 mg QHS JOCELYNE Administration Ropinirole HCl 1 mg 07/12/21 14:17 Ropinirole 1 Mg Tab PO QHS PRN restless legs Sertraline HCl 100 mg 07/13/21 10:00 07/15/21 09:17 Sertraline 100 Mg Tab PO 100 mg QDAY JOCELYNE Administration Sodium Chloride 10 ml 07/12/21 17:00 07/15/21 09:18 Sodium Chloride 0.9% 10 Ml Flush Syringe IV 10 ml BID JOCELYNE Administration Sodium Chloride 10 ml 07/12/21 14:14 Sodium Chloride 0.9% 10 Ml Flush Syringe IV PRN PRN LINE FLUSH Sucralfate 1 gm 07/12/21 17:30 07/15/21 09:18 Sucralfate 1 Gm/10 Ml Oral Liqd PO 1 gm ACHS JOCELYNE Administration Tramadol HCl 50 mg 07/12/21 16:24 Tramadol 50 Mg Tab PO Q6H PRN Pain, Moderate (4-6)
[2021-07-15] MEDS: METOPROLOL SUCCINATE XL 25 MG TAB PO SCH (12:32)
[2021-07-15] MEDS ORDERED: DEXTROSE/DEXTRIN/MALTOSE 24 GM CARB PER 31 GM TUBE PO ONE (13:00)
[2021-07-15] MEDS: hydrALAZINE 25 MG TAB PO SCH ×2 (13:14→21:12)
[2021-07-15] MEDS: MONTELUKAST 10 MG TAB PO SCH (16:59)
[2021-07-15] MEDS: QUEtiapine 100 MG TAB PO SCH (21:12)
[2021-07-16] MEDS: hydrALAZINE 25 MG TAB PO SCH ×2 (05:08→13:07)
[2021-07-16] MEDS: SERTRALINE 100 MG TAB PO SCH (09:53)
[2021-07-16] MEDS: FENOFIBRATE 145 MG TAB PO SCH (09:53)
[2021-07-16] MEDS: SUCRALFATE 1 GM/10 ML ORAL LIQD PO SCH ×2 (09:53→13:07)
[2021-07-16] MEDS: POTASSIUM CHLORIDE ER 10 MEQ TAB PO SCH (09:53)
[2021-07-16] MEDS: amLODIPine 5 MG TAB PO SCH (09:53)
[2021-07-16] MEDS: METOPROLOL SUCCINATE XL 25 MG TAB PO SCH (09:53)
[2021-07-16] MEDS: PANTOPRAZOLE 40 MG TAB PO SCH (09:53)
--- NOTE | 2021-07-16 11:00 | Progress Note ---
Assessment and Plan NSVT, 5 beats Asymptomatic, 1 episode Echo showing preserved left ventricular ejection fraction this admission. Adrenal crisis Essential hypertension Hyperlipidemia Recommendations: Continue low dose toprol XL No further inpatient cardiac work-up. Patient may follow-up with our office as outpatient. Subjective Date of service: 07/16/21 Principal diagnosis: NSVT Interval history: No events recorded overnight. Patient is asymptomatic from a cardiac standpoint. Objective Vital Signs Temp Pulse Pulse Resp BP Pulse Ox 07/16/21 09:35 98.1 F 91 H 18 166/83 99 07/16/21 08:00 82 18 99 07/16/21 03:32 98.1 F 93 H 16 156/70 98 07/15/21 23:22 98.3 F 89 14 146/67 99 07/15/21 20:58 18 99 07/15/21 19:23 98.0 F 87 16 164/68 99 07/15/21 16:17 98.6 F 89 18 166/70 100 07/15/21 12:39 100 H 165/76 96 07/15/21 11:11 98 H 18 99 07/15/21 11:03 98 - Physical Examination HEENT: Positive: PERRL Neck: Positive: neck supple Cardiac: Positive: Reg Rate and Rhythm Lungs: Positive: Normal Exam
--- NOTE | 2021-07-16 11:57 | Discharge Summary ---
Providers - Providers Date of Admission: 07/12/21 14:14 Date of discharge: 07/16/21 Attending physician: WALLACE MARINELLI MD 07/14/21 16:03 Physical Therapy Evaluation and Treat [CONS] Routine Comment: Reason For Exam: Eval and Treat 07/14/21 16:04 Occupational Therapy Evaluate and Treat [CONS] Routine Comment: Reason For Exam: Eval and Treat 07/15/21 00:56 Consult to Physician [CONS] Routine Comment: Consulting Provider: LINDA SAAVEDRA Physician Instructions: Reason For Exam: run of [email or web address] Primary care physician: REGISTERED NURSE AMBULATORY Hospitalization Condition: Good Hospital course: Assessment and Plan Assessment and plan: 75 YO Female with HTN, GERD, OA, Adrenal Insufficiency, DM presents to ED for evaluation. Patient is confused and lethargic the time my evaluation unable to provide detailed history. Patient provides only minimal history. Additional history brought by EMS staff, ED staff, as well as patient who was made available by telephone for interview. As per this patient had experienced increased fatigue, confusion, episodes of agitation over the past 3 days with persistent and worsening symptoms over the same timeframe. Patient was found to be more confused today. The patient ran out of hydrocortisone 2 weeks ago and has been noncompliant with medication since that time. EMS was notified and upon arrival the patient was found to be in distress and found to have a serum glucose of 20. Patient given an ampule of D50 and subsequent transported to [facility] for further care and evaluation of the aforementioned symptoms. The patient was seen and evaluated in the emergency department. All lab and imaging studies reviewed. The patient was found to have adrenal insufficiency crisis complicated by hypoglycemia, as well as metabolic encephalopathy, and acute kidney injury. Patient admitted to [facility] and initiated on IV hydrocortisone replacement therapy, D5 drip, with concomitant IV fluid resuscitation therapy. No reports of fever, chills, chest pain, palpitation or productive cough, skin rash, recent contact, or known exposure to COVID-19. Prior admission on 05/09/2021 reviewed. All medication listed at time of admission has been reconciled. Patient has diminished cognition at time of evaluation but has a positive gag reflex and is able to protect her airway without difficulty. 07/13: Patient seen and examined, she is showing clinical improvement. Will discontinue D10 at this time, continue steroids. Start diet, anticipate discharge in am. 07/14:Patient noted to have hypoglycemia mildly today not so sure how her diet was in the last 24 hours we will discussed with nursing staff to keep an accurate documentation of how much she is eating. She is on a regular meal at this time review of records from her adrenal work-up shows an elevated cortisol level. I think this patient will benefit from an therapeutic radiologist evaluation outpatient until at that time we will likely need to put her on some type of glucose supplementation until full work-up is completed outpatient. Hydroc ortisone has been stopped will monitor to ensure no blood pressure complications. 07/15: Overnight patient had short run of V. tach replace potassium and magnesium cardiology to start the patient on Toprol will need to monitor this closely especially the patient is experiencing some hypoglycemic episode. I also stopped the D5 at this time again review of records in the past does not show adrenal insufficiency as cortisol level was elevated. Nevertheless I have discontinued the hydrocortisone as mentioned previously have discussed this with the patient patient will likely need glucose supplementation outpatient daily until seen by therapeutic radiologist she has an appointment upcoming with one of the therapeutic radiologist. Possible discharge in a.m. if clinically stable 07/16/21 patient is doing good. No chest pain no shortness of breath. No further episode of V. tach. Patient is seen and evaluated by cardiology. Echo showed preserved LV ejection fraction. Cardiology recommended low-dose Toprol- XL. No further cardiac work-up. Outpatient follow-up with [facility]ology at [facility]. Blood glucose is 106. We are going to discharge the patient. patient instructed to follow-up with primary care within a week and outpatient follow-up with therapeutic radiologist in 1 to 2 weeks. Condition at the time of discharge is stable (1) Adrenal crisis syndrome Current Visit: Yes Status: Acute Plan to address problem: IV hydrocortisone bolus, IV hydrocortisone therapy, IV fluid resuscitation therapy, neuro check, supportive care, blood pressure monitoring. (2) Acute kidney injury (ELISA) with acute tubular necrosis (ATN) Current Visit: Yes Status: Acute Plan to address problem: IV fluid resuscitation therapy, BMP, repeat BMP in a.m. (3) Metabolic encephalopathy Current Visit: Yes Status: Acute Plan to address problem: Neuro check, CT scan head from prior admission reviewed, seizure precautions, treat adrenal insufficiency (4) Hypoglycemia Current Visit: Yes Status: Acute Plan to address problem: Dextrose drip, Accu-Chek every 6 hours, continue hypoglycemia protocol (5) DVT prophylaxis Current Visit: Yes Status: Acute Plan to address problem: SCD to bilateral lower extremities while in bed (6) Advance care planning Current Visit: Yes Status: Acute Plan to address problem: Disease education conducted, care plan discussed, diagnoses discussed, prognosis discussed, patient is full code, patient family acknowledges understanding agree with care plan. Patient family counseled outpatient medication compliance. +30 minutes. History Interval history: Patient seen and examined, no new complaints. Disposition: HOME / SELF CARE / HOMELESS Final Discharge Diagnosis (Prints w/discharge instructions): Adrenal crisis syndrome, acute kidney injury improved, metabolic encephalopathy improved, hypoglycemia improved Core Measure Documentation - Palliative Care Palliative Care/ Comfort Measures: Not Applicable - Core Measures Any of the following diagnoses?: none Exam - Constitutional Vitals: Temp Pulse Resp BP Pulse Ox 98.1 F 91 H 18 166/83 99 07/16/21 09:35 07/16/21 09:35 07/16/21 09:35 07/16/21 09:35 07/16/21 09:35 General appearance: Present: no acute distress, well-nourished - EENT Eyes: Present: PERRL ENT: hearing intact, clear oral mucosa - Neck Neck: Present: supple, normal ROM - Respiratory Respiratory effort: normal Respiratory: bilateral: CTA - Cardiovascular Heart Sounds: Present: S1 & S2. Absent: rub, click - Extremities Extremities: pulses symmetrical, No edema Peripheral Pulses: within normal limits - Abdominal General gastrointestinal: Present: soft, non-tender, non-distended, normal bowel sounds Female genitourinary: Present: normal - Integumentary Integumentary: Present: clear, warm, dry - Musculoskeletal Musculoskeletal: gait normal, strength equal bilaterally - Psychiatric Psychiatric: appropriate mood/affect, intact judgment & insight - Neurologic Neurologic: CNII-XII intact, moves all extremities Plan Diet: low fat, low cholesterol, low salt Follow up with: PRIMARY CARE, [Primary Care Provider] - 7 Days Prescriptions: Hydrocortisone [Cortef TAB] 20 mg PO Q12HR 30 Days #60 tablet Metoprolol Xl [Metoprolol SUCCINATE ER TAB] 25 mg PO QDAY 30 Days #30 tablet
[2021-07-16 13:08] VITALS: BP 162/65
--- NOTE | 2021-07-18 10:50 | Electrocardiograph Report ---
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
== END 2021-07-16 13:55 | disposition home or self-care (01) | DRG 70 ==
LOC: ED 09:46 → IMCU 14:14 → 4A 07-13 19:42
PROVIDERS: ADMIT Internal Medicine; ATTEND Hospitalist
DX: G93.41 Metabolic encephalopathy (principal); N17.0 Acute kidney failure with tubular necrosis; E27.2 Addisonian crisis; I47.1 Supraventricular tachycardia; E11.649 Type 2 diabetes mellitus with hypoglycemia without coma; Z20.822 Contact with and (suspected) exposure to COVID-19; E78.5 Hyperlipidemia, unspecified; K21.9 Gastro-esophageal reflux disease without esophagitis; I10 Essential (primary) hypertension; M19.90 Unspecified osteoarthritis, unspecified site; Z90.49 Acquired absence of other specified parts of digestive tract; Z90.710 Acquired absence of both cervix and uterus; Z88.6 Allergy status to analgesic agent; Z88.8 Allergy status to other drugs, medicaments and biological substances; Z83.3 Family history of diabetes mellitus; Z82.49 Family history of ischemic heart disease and other diseases of the circulatory system
CPT/HCPCS: 36415; 80053; 82962; 83735; 84100; 84439; 84443; 85025; 87641; 93005; 93306; G0378; J3490; J7510; J0360; J1170; J1720; J3475; J7030; J7040; J7070; U0003